=== PATIENT | male | born 1940 | race Caucasian/White ===

== ENCOUNTER 2016-11-15 20:47 | Inpatient (IN) ==
--- NOTE | 2016-11-15 21:34 | Emergency Department Note ---
Arrival - Arrival Chief Complaint: Weakness Stated Complaint: weakness ED Nursing Triage Note: pt c/o weakness and "a blood clot in one leg". EMS states home health sees patient and c/o "elevated creatnine". Mode of Arrival: Stretcher Limitations: Altered Mental Status Source: Family Time Seen by Provider: 11/15/16 21:30 - History of Present Illness HPI Narrative: The family complains of confusion and "acting weird" off and on for the past 2 weeks. The patient was recently in the hospital in [place] and had stents placed in the right leg. He apparently needed them in the left leg to but was having some elevated potassium and other abnormalities that prevented them from doing the procedure. He was discharged home. [facility] is been seeing him and nghia blood earlier today. The family was called back and told to tavarez him to the emergency room because it was abnormal. The patient has no complaints here except for chronic hip pain but he is somewhat lethargic and does not contribute much to the history. The family states he did have some vomiting this morning. Allergies/Adverse Reactions: Allergies Allergy/AdvReac Type Severity Reaction Status Date / Time No Known Allergies Allergy Verified 10/24/14 12:10 Home Medications: Home Medications Medication Instructions Recorded Confirmed Type Baclofen Tab [Lioresal] 10 mg PO DAILY 10/24/14 07/08/16 History Furosemide Tab [Lasix Tab] 40 mg PO BID 10/24/14 07/08/16 History HYDROcodone/ACETAMIN 10-325 [[place] 1 tablet PO QID PRN 10/24/14 07/08/16 History 10-325] Pantoprazole Tab [Protonix Tab] 40 mg PO DAILY 10/24/14 07/08/16 History Potassium Chloride Tab [K Dur] 20 meq PO BID 10/24/14 07/08/16 History Levothyroxine Tab [Synthroid Tab] 112 mcg PO DAILY 04/17/16 07/08/16 History Magnesium Oxide [Magox 400] 2,000 mg PO TID 04/17/16 07/08/16 History Pregabalin [Lyrica] 75 mg PO BID 04/17/16 07/08/16 History Umeclidinium Brm/Vilanterol Tr 1 puff INH DAILY 04/17/16 07/08/16 History [Anoro Ellipta] fentaNYL 100 MCG/HR PATCH 1 patch TRANSDERM Q3DAY #5 patch 05/06/16 07/08/16 Rx [Duragesic 100 Patch] Albuterol Sulfate [Ventolin HFA] 2 puff INH Q4H PRN 07/08/16 07/08/16 History Cholestyramine (with Sugar) 4 gm PO BID 07/08/16 07/08/16 History [Cholestyramine Packet] Clindamycin HCl [Clindamycin Cap] 300 mg PO QID 07/08/16 07/08/16 History Diphenoxylate/Atrop 2.5-0.025 2 each PO Q6H PRN 07/08/16 07/08/16 History [Lomotil Tab] Ipratropium/Albuterol Sulfate 3 ml IH TID 07/08/16 07/08/16 History [Iprat-Albut 0.5-3(2.5) mg/3 ml] Temazepam 30 mg PO BEDTIME PRN 07/08/16 07/08/16 History metOLazone [Metolazone] 5 mg PO BID 07/08/16 07/08/16 History Review of System - Review of System ROS unobtainable: due to mental status - Review of System Constitutional: Absent: fever Respiratory: Absent: cough, respiratory distress Cardiovascular: Absent: chest pain Gastrointestinal: Present: nausea, vomiting. Absent: abdominal pain Medical,Surgical,& Family Hx - Medical History Cardio: History of: CHF, CAD (50% LAD lesion) No history of: Hypertension Neurology: History of: Cerebrovascular Accident (had 10 years) No history of: Seizures HEENT: History of: Eye Problem (Glasses) Endocrine: History of: Thyroid Disorder Respiratory: History of: COPD Genitourinary: History of: Prostate Problems (prostate cancer) Gastrointestinal: History of: GERD, GI Problems (Chronic diarrhea about 8 years) No history of: Clostridium Difficile Musculoskeletal: History of: Back/Neck Problems (Back pain, chronic. Treated at pain clinic. Neck injury 3 crushed vertebrae), Musculoskeletal Problems Hematology: No history of: Blood Transfusion Reaction Other: History of: Cancer (Prostate) No history of: Anesthesia Reactions - Surgical History Cardiac Surgeries: Patient Denies: Cardiac Catheterization Thoracic Surgeries: Patient denies;: Organ Transplant Neurologic Surgeries: Patient denies: Neurologic Surgery Abdominal Surgeries: Surgical HX of: Abdominal Surgery, Cholecystectomy Reproductive Surgeries: Surgical HX of;: Cystoscopy Orthopedic Surgeries: Surgical HX of;: Orthopedic Surgery (wrist surgery, hip surgery, neck sugery and back surgery) - Family History Family History: Reports;: Family Cancer (Skin (Uncle)), Family Diabetes (Mother) , Family Heart Disease (Uncle, Grandfather:Father (OR)), Family Hypertension ( Mother) - Social History Smoking Status: Current every day smoker Frequency of Alcohol Use: Frequently Type of Drug Use: None Exam Physical Examination: GENERAL: Sleeping. Easily aroused. No acute distress. HEENT: Normocephalic and atraumatic. There is no nasal drainage. No pharyngeal erythema or exudate. Mucous membranes are dry. There is an indurated nodule (node versus submandibular gland) that is mildly tender with an area of ecchymosis around it. NECK: Normal inspection. Supple. No lymphadenopathy or meningismus. LUNGS: No respiratory distress. Clear to auscultation bilaterally, no wheezes, rales or rhonchi. HEART: Regular rate and rhythm. ABDOMEN: Soft, nontender and nondistended with normoactive bowel sounds. There is extensive ecchymosis of the abdomen, presumably due to Lovenox injections. BACK: Normal inspection. SKIN: Color normal. Warm and dry. EXTREMITIES: There is extensive redness, brawny edema and pitting edema to both lower extremities. Capillary refill is normal. DP pulses not palpable due to edema. There is scaling in the appearance of vascular insufficiency. NEUROLOGICAL/PSYCHIATRIC: Alert and oriented 3. Lethargic and not very cooperative but arousable. Not very cooperative with neuro exam.. Vital Signs: Vital Signs Temperature 96.8 F L 11/15/16 21:03 Pulse Rate 63 11/15/16 23:18 Respiratory Rate 18 11/15/16 23:18 Blood Pressure 118/79 11/15/16 23:18 O2 Sat by Pulse Oximetry 91 L 11/15/16 23:18 Course - Reevaluation(s) Reevaluation #1: It is not clear exactly what labs the home health agency was concerned with. His creatinine is elevated at 2.3 but has been at that level in the past. It was 1.6 at his last discharge. At any rate he is having some mental status changes and does appear ill. I have discussed the patient with Dr. Fregoso who will see him in the ER and admit. Time: 00:35 Results - Labs CBC & BMP: 11/15/16 21:13 11/15/16 21:13 Lab Results: I have reviewed the patients labs Labs: Laboratory Tests 11/15/16 11/15/16 11/15/16 21:13 21:13 21:13 INR 2.3 BUN 44 H Creatinine 2.30 H Magnesium Total Bilirubin 1.10 H AST 24 ALT 17 Troponin I B-Natriuretic Peptide 74 11/15/16 21:13 INR BUN Creatinine Magnesium 4.0 H Total Bilirubin AST ALT Troponin I < 0.015 B-Natriuretic Peptide - Impressions CT of the head showed no acute intracranial abnormality. Chest x-ray shows cardiomegaly but no acute abnormality. EKG shows a sinus rhythm at 65 with sinus arrhythmia and low QRS voltage Disposition Clinical Impression: Anemia, Mental status change, Lower extremity edema, Hypothyroid Case discussed with: patient, patient's family Disposition: Still a Patient Condition: Guarded Time of Disposition: 00:34
[2016-11-15 21:40] LABS: Basophils # 0.1 10*3/uL (0.0-0.2); Basophils % 0.5 % (0.0-0.8); Eosinophils # 0.6 10*3/uL (0.0-0.87); Eosinophils % 5.4 % (0.00-10.9); Hematocrit 28.6 VOL% (42.0-52.0); Hemoglobin 9.2 GM/DL (14.0-18.0); Immature Granulocytes % 0.5 %; Immature Granulocytes Absolute 0.06 #; Lymphocytes # 1.1 10*3/uL (1.4-4.0); Lymphocytes % 9.9 % (21.2-54.2); Mean Corpuscular HGB Conc 32.2 GM/DL (32-36); Mean Corpuscular Hemoglobin 30 PG (27-34); Mean Corpuscular Volume 94.1 FL (87-102); Mean Platelet Volume 9.3 FL (9.6-12.0); Monocytes # 0.6 10*3/uL (0.11-0.8); Monocytes % 5.1 % (1.7-12.7); Neutrophils # 8.6 10*3/uL (1.4-7.4); Neutrophils % 78.6 % (38.7-73.9); Platelet Count 283 T/CUMM (130-400); Red Blood Count 3.04 MC/CUMM (3.8-5.5)
[2016-11-15 21:47] LABS: INR 2.3
[2016-11-15 22:03] LABS: PT Patient Result 25.3 SECS; Partial Thromboplastin Time 41.8 SECS (0-40)
[2016-11-15 22:04] LABS: Albumin 2.6 G/DL (3.4-5.0); Bilirubin,Total 1.1 MG/DL (0.2-1.0); Calcium 7.9 MG/DL (8.5-10.1); Osmolality,Calculated 279.1 MOS/KG (273-304); Potassium 3.7 MMOL/L (3.5-5.1); Total Protein 7.3 G/DL (6.4-8.3)
[2016-11-15 22:21] LABS: CKMB % 3.6 %; Troponin I Only < 0.015 NG/ML (0.00-0.045)
[2016-11-16 01:50] LABS: Free T4 (Free Thyroxine) 0.94 NG/DL (0.76-1.46); Thyroid Stimulating Hormone 26.7 uIU/ml (0.358-3.74)
[2016-11-16] MEDS ORDERED: GLUCAGON 1 MG VIAL IM PRN (03:03)
[2016-11-16] MEDS ORDERED: DEXTROSE 50% 25 GM/50 ML VIAL IV PRN (03:03)
[2016-11-16] MEDS ORDERED: ONDANSETRON 4 MG/2 ML VIAL IV PRN (03:03)
[2016-11-16] MEDS ORDERED: ACETAMINOPHEN 325 MG TABLET PO PRN (03:03)
[2016-11-16] MEDS: DEXTROSE 5% NACL 0.45% 1,000 ML IV SCH ×4 (03:38→20:26)
[2016-11-16] MEDS: PIPERACILLIN/TAZOBACTAM 3,375 MG in SODIUM CHLORIDE 0.9% 100 ML IV SCH ×3 (03:51→20:27)
[2016-11-16] MEDS ORDERED: VANCOMYCIN INJ 1,500 MG in SODIUM CHLORIDE 0.9% 500 ML IV ONE (04:00)
--- NOTE | 2016-11-16 04:23 | Hospitalist History & Physical ---
Assessment and Plan (1) Cellulitis Status: Acute Assessment and plan: Both lower extremities seem to have acute inflammation, coupling with his altered mental status I am concerned for infection Vancomycin and Zosyn to cover for typical polymicrobial infection including MRSA and Pseudomonas potentially Pharmacy consult Check ESR and CRP to evaluate for potential osteomyelitis Recently had a peripheral vascular stent placed on the right presumably to improve blood flow to the wounds Hemodynamically stable Current Visit: Yes Qualifiers: Site of cellulitis: extremity Site of cellulitis of extremity: lower extremity Laterality: unspecified laterality Qualified Code(s): L03.119 - Cellulitis of unspecified part of limb (2) Acute kidney injury Status: Acute Assessment and plan: Renal function appears worse than baseline, likely secondary to infection, appears dehydrated, IV fluids and hold diuretic Current Visit: Yes (3) Hypothyroidism Status: Acute Assessment and plan: Patient has levothyroxine 112 g listed at home, TSH is not at goal Current Visit: Yes (4) COPD (chronic obstructive pulmonary disease) Status: Chronic Assessment and plan: Takes the Anoro at home, currently not an exacerbation Continue with Etta Chou's Current Visit: Yes (5) Mental status change Status: Acute Assessment and plan: Mostly seems somnolent and sick but is oriented Hold potential offending medications including opiates, removed fentanyl patch Treat 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 Lu is a 76 year old male with past medical history that includes Jose's disease, COPD, stroke, coronary artery disease, prostate cancer, hypothyroidism and peripheral vascular disease the presented with a chief complaint by family of altered mental status. There is no family available at the time of my exam but apparently this is been going on for a few days. I can appreciate that he is a bit somnolent but he is completely oriented and able to provide his own history although he repeatedly falls to sleep. He recently had a stent placed in the right femoral artery and [place] and has had home health following since that time. Home health apparently nghia labs and due to some unknown abnormality called and told the family to proceed directly to the emergency department. 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 In speaking with the patient his chief complaint is pain in bilateral feet. Onset gradual. Duration 2 weeks. No aggravating or relieving factors. No associated fever or chills. He denied currently being on antibiotics although the wounds are draining foul-smelling fluid. He had no other particular complaints and wished to go home. I have reviewed the workup performed in the emergency department including lab and imaging data. I have discussed his case with the emergency department providers. Home Medications Medication Instructions Recorded Confirmed Type Baclofen Tab [Lioresal] 10 mg PO DAILY 10/24/14 11/16/16 History Furosemide Tab [Lasix Tab] 80 mg PO BID 10/24/14 11/16/16 History HYDROcodone/ACETAMIN 10-325 [[place] 1 tablet PO QID PRN 10/24/14 11/16/16 History 10-325] Pantoprazole Tab [Protonix Tab] 40 mg PO DAILY 10/24/14 11/16/16 History Potassium Chloride Tab [K Dur] 20 meq PO BID 10/24/14 11/16/16 History Levothyroxine Tab [Synthroid Tab] 112 mcg PO DAILY 04/17/16 11/16/16 History Magnesium Oxide [Magox 400] 2,000 mg PO TID 04/17/16 11/16/16 History Pregabalin [Lyrica] 75 mg PO BID 04/17/16 11/16/16 History Umeclidinium Brm/Vilanterol Tr 1 puff INH DAILY 04/17/16 11/16/16 History [Anoro Ellipta] fentaNYL 100 MCG/HR PATCH 1 patch TRANSDERM Q3DAY #5 patch 05/06/16 11/16/16 Rx [Duragesic 100 Patch] Albuterol Sulfate [Ventolin HFA] 2 puff INH Q4H PRN 07/08/16 11/16/16 History Clindamycin HCl [Clindamycin Cap] 300 mg PO QID 07/08/16 11/16/16 History Diphenoxylate/Atrop 2.5-0.025 2 each PO Q6H PRN 07/08/16 11/16/16 History [Lomotil Tab] Temazepam 30 mg PO BEDTIME PRN 07/08/16 11/16/16 History metOLazone [Metolazone] 5 mg PO BID 07/08/16 11/16/16 History Allergies Allergy/AdvReac Type Severity Reaction Status Date / Time No Known Allergies Allergy Verified 10/24/14 12:10 Medical,Surgical,& Family Hx - Medical History Cardio: History of: CHF, CAD (50% LAD lesion) No history of: Hypertension Neurology: History of: Cerebrovascular Accident (had 10 years) No history of: Seizures HEENT: History of: Eye Problem (Glasses) Endocrine: History of: Thyroid Disorder Respiratory: History of: COPD Genitourinary: History of: Prostate Problems (prostate cancer) Gastrointestinal: History of: GERD, GI Problems (Chronic diarrhea about 8 years) No history of: Clostridium Difficile Musculoskeletal: History of: Back/Neck Problems (Back pain, chronic. Treated at pain clinic. Neck injury 3 crushed vertebrae), Musculoskeletal Problems Hematology: No history of: Blood Transfusion Reaction Other: History of: Cancer (Prostate) No history of: Anesthesia Reactions - Surgical History Cardiac Surgeries: Patient Denies: Cardiac Catheterization Thoracic Surgeries: Patient denies;: Organ Transplant Neurologic Surgeries: Patient denies: Neurologic Surgery Abdominal Surgeries: Surgical HX of: Abdominal Surgery, Cholecystectomy Reproductive Surgeries: Surgical HX of;: Cystoscopy Orthopedic Surgeries: Surgical HX of;: Orthopedic Surgery (wrist surgery, hip surgery, neck sugery and back surgery) - Family History Family History: Reports;: Family Cancer (Skin (Uncle)), Family Diabetes (Mother) , Family Heart Disease (Uncle, Grandfather:Father ([place])), Family Hypertension ( Mother) - Social History Smoking Status: Former smoker (But smoking 20 years ago) Have you smoked in the last 12 months: No Frequency of Alcohol Use: Frequently Type of Drug Use: None Marital Status: Lives With:: Spouse Functional capacity: wheelchair bound Review of systems: - Constitutional Constitutional: Absent: chills, fatigue, fever(s), night sweats, weight loss - EENT Eyes: Absent: blurry vision Ears: Absent: decreased hearing, ear pain Nose, mouth and throat: Absent: nasal congestion, sore throat - Cardiovascular Cardiovascular: Absent: chest pain at rest, chest pain with activity, dyspnea on exertion, edema, orthopnea, palpitations - Respiratory Respiratory: Absent: cough, dyspnea, hemoptysis - Gastrointestinal Gastrointestinal: Absent: abdominal pain, constipation, diarrhea, dysphagia, hematemesis, hematochezia, melena, nausea, vomiting - Genitourinary Genitourinary: Absent: difficulty urinating, dysuria, hematuria - Musculoskeletal Musculoskeletal: Present: Pain in bilateral feet - Neurological Neurological: Absent: confusion, dizziness, focal weakness, headache(s), numbness, paresthesias, syncope - Psychiatric Psychiatric: Absent: anxiety, depression - Endocrine Endocrine: Absent: cold intolerance, heat intolerance, polydipsia, polyuria - Hematologic/Lymphatic Hematologic/Lymphatic: Absent: easy bleeding, easy bruising, lymphadenopathy Exam - Constitutional Vitals: Period Temp Pulse Resp BP Sys/Jones Pulse Ox Last 24 Hr 97.4 F 68 18 108/66 93 General appearance: morbidly obese (Elderly white male sleepy lying in stretcher easily awoken and pleasant and cooperative) Exam: - Eye Eye exam: Present: EOMI. Absent: conjunctival injection, scleral icterus Pupils: Present: MIKAL - ENT ENT exam: Present: normal external ear exam, normal oropharynx - Expanded ENT Exam Mouth exam: Present: Dry - Neck Neck exam: Present: normal inspection. Absent: lymphadenopathy, thyromegaly - Respiratory Respiratory exam: Present: Coarse breath sounds bilaterally. Absent: accessory muscle use, wheezes - Cardiovascular Cardiovascular exam: Present: regular rate and rhythm. Absent: diastolic murmur , systolic murmur - GI/Abdominal GI/Abdominal exam: Present: normal bowel sounds, soft, bruising on abdomen. Absent: distended, hyperactive bowel sounds, hypoactive bowel sounds, organomegaly, tenderness, rebound - Extremities Exam Extremities exam: Present: Marked bilateral lower extremity edema, with redness , weeping foul-smelling fluid, hyperemic - Neurological Exam Neurological exam: Present: alert, oriented X3, CN II-XII intact. Absent: motor sensory deficit - Psychiatric Psychiatric exam: Present: Sleepy, ill appearing affect - Skin Skin exam: Present: warm, dry. Absent: diaphoretic, rash Results - Labs CBC & BMP: 11/15/16 21:13 11/15/16 21:13 - EKG EKG results: sinus rhythm - Diagnostic Findings Procedure: Chest x-ray: report reviewed by me, CT: report reviewed by me Quality Measures - VTE Contraindication to Mechanical VTE Prophylaxis: Local Inflammation
--- NOTE | 2016-11-16 06:34 | CT Report ---
Referring physician: Stephon Harp Exam: CT brain without contrast Date: November 15, 2016 Comparison: CT brain without contrast October 22, 2014 Reason: Mental status change/memory loss The patient was an Emergency Department patient on November 15, 2016. Preliminary report was provided by [facility]. Technique: Axial images of the head were obtained without the use of contrast. Total DLP was 1081.1 mGy*cm. Findings: There is [id number] generalized cerebral and cerebellar atrophy/volume loss and probable mild chronic microvascular ischemic change. The lateral ventricles are mildly prominent but stable, likely secondary to central atrophy/volume loss. No midline shift is present. There is no evidence of recent intracranial hemorrhage, abnormal mass effect or an acute infarction. No acute osseous process is seen, but there may be a remote fracture of the medial wall of the left orbit. Prominent calcified plaque is noted at the intracranial internal carotid arteries. The mastoid air cells and visualized paranasal sinuses are clear. Impression: 1. No acute intracranial process is identified. 2. Chronic intracranial findings, similar to before. The CT exam was performed using one or more of the following dose reduction techniques: Automated exposure control and adjustment of the mA and/or kV according to patient size. PROCEDURE INTERPRETED AT [facility] DEPARTMENT OF RADIOLOGY Final Report Signed by: Dr. Park Ortiz
[2016-11-16] MEDS: INSULIN LISPRO 100 UNIT/ML SUBCUT SCH ×4 (08:00→20:27)
--- NOTE | 2016-11-16 08:22 | XRay Report ---
Referring Physician: Stephon Harp Exam: XR chest 1V portable Date: November 15, 2016 at 9:45 PM Reason: Dyspnea/shortness of breath Comparison: Chest one view portable July 08, 2016 Findings: The cardiac silhouette is again enlarged, and there is prominent scattered calcified plaque at the thoracic aorta. There are minimal opacities within the left midlung zone, which likely represent atelectasis or scarring. No pneumothorax or definite pleural fluid is identified. No acute osseous process is seen. There is again surgical fusion of the cervical spine. Impression: 1. Cardiomegaly. 2. Minimal atelectasis or scarring within the left midlung zone. PROCEDURE INTERPRETED AT [facility] DEPARTMENT OF RADIOLOGY Final Report Signed by: Dr. Park Ortiz
[2016-11-16] MEDS: LEVOTHYROXINE 112 MCG TABLET PO SCH (09:21)
[2016-11-16] MEDS: PANTOPRAZOLE 40 MG TABLET PO SCH (09:21)
--- NOTE | 2016-11-16 15:11 | EKG Report ---
Stationary ECG Study [facility] Test Date: 11/15/2016 9:21:03 PM Pat Name: DREW ANSARI Department: Room: 521 Gender: M Basketball Referee: : 1940 Requested by: Stephon Casillas Order Number: [id number] Reading MD: MAYDA PINA Intervals [place] Rate: 65 P: 50 OH: 215 QRS: -18 QRSD: 91 T: 20 QT: 423 QTc: 435 Interpretive Statements SINUS RHYTHM WITH SINUS ARRHYTHMIA WITH PROLONGED OH INTERVAL Electronically Signed On 11-18-16 12:16:40 CDT by MAYDA PINA [email or web address]
[2016-11-16] MEDS ORDERED: SKIN HEALING OINT (AQUAPHOR) 50 GM TUBE TOP PRN (15:17)
--- NOTE | 2016-11-16 16:16 | XRay Report ---
Referring Physician: Gopal Still MD Exam: XR bilateral foot 2 views Date: November 16, 2016 at 3:04 PM Reason: Wounds at feet, evaluate for osteomyelitis Comparison: None Findings: Left foot: There are hammertoe deformities at the left foot and diffuse demineralization/osteoporosis. This makes evaluation for a subtle osseous lesion difficult, but no acute fracture or osseous destructive process is identified. There may be a remote fracture of the left fifth metatarsal. Scattered degenerative change is seen at the left foot with mild marginal spurring and mild joint space narrowing. There is a diffuse soft tissue swelling at the left foot. Right foot: There has been internal fixation of the distal right tibia, and a 1.7 cm curvilinear metallic density is seen within the soft tissues of the plantar aspect of the right foot. This is concerning for a soft tissue foreign body. Hammertoe deformities are present at the right foot, and there is diffuse demineralization/osteoporosis. Scattered degenerative change is seen at the right foot with mild joint space narrowing and marginal spurring. Evaluation for a subtle process is difficult, but no acute fracture or osseous destructive process is identified. Diffuse soft tissue swelling is present. Impression: 1. Diffuse soft tissue swelling is seen at both feet but no acute osseous process is identified. Specifically, there is no convincing evidence of osteomyelitis. However, evaluation is limited by diffuse demineralization/osteoporosis and hammertoe deformities at the digits bilaterally. 2. There has been internal fixation of the distal right tibia, and a 1.7 cm curvilinear metallic soft tissue foreign body is seen at the plantar aspect of the right foot. PROCEDURE INTERPRETED AT [facility] DEPARTMENT OF RADIOLOGY Final Report Signed by: Dr. Park Ortiz
[2016-11-16] MEDS: WARFARIN 5 MG TABLET PO SCH (17:05)
[2016-11-16] MEDS: CLOPIDOGREL 75 MG TABLET PO SCH (17:05)
[2016-11-16] MEDS: CHLORHEXIDINE 4% SOLN 118 ML BOTTLE TOP SCH (17:05)
[2016-11-16] MEDS: DESITIN 4OZ/NYSTATIN 15 GRAM MIXTURE PASTE TOP SCH ×2 (17:43→21:03)
[2016-11-16] MEDS: ALBUTEROL/IPRATROPIUM 3 ML NEB RESP TX PRN (18:39)
[2016-11-17] MEDS: DEXTROSE 5% NACL 0.45% 1,000 ML IV SCH (02:03)
[2016-11-17] MEDS: PIPERACILLIN/TAZOBACTAM 3,375 MG in SODIUM CHLORIDE 0.9% 100 ML IV SCH ×3 (03:06→22:49)
[2016-11-17 06:59] LABS: INR 2.4
[2016-11-17 07:04] LABS: PT Patient Result 26.8 SECS
[2016-11-17 07:07] LABS: Basophils % 0.3 % (0.0-0.8); Eosinophils # 0.5 10*3/uL (0.0-0.87); Eosinophils % 5.6 % (0.00-10.9); Hematocrit 24.3 VOL% (42.0-52.0); Immature Granulocytes % 0.5 %; Immature Granulocytes Absolute 0.04 #; Lymphocytes # 0.8 10*3/uL (1.4-4.0); Lymphocytes % 9.2 % (21.2-54.2); Mean Corpuscular HGB Conc 32.1 GM/DL (32-36); Mean Corpuscular Hemoglobin 30 PG (27-34); Mean Corpuscular Volume 93.1 FL (87-102); Mean Platelet Volume 10.3 FL (9.6-12.0); Monocytes # 0.7 10*3/uL (0.11-0.8); Monocytes % 7.8 % (1.7-12.7); Neutrophils # 6.6 10*3/uL (1.4-7.4); Neutrophils % 76.6 % (38.7-73.9); Platelet Count 201 T/CUMM (130-400); Red Blood Count 2.61 MC/CUMM (3.8-5.5); Red Cell Distribution Width 16.7 % (9.3-17.3); White Blood Count 8.6 T/CUMM (4-12)
[2016-11-17 07:09] LABS: Hemoglobin 7.8 GM/DL (14.0-18.0)
[2016-11-17 07:29] LABS: Albumin 1.8 G/DL (3.4-5.0); Osmolality,Calculated 289.3 MOS/KG (273-304); Potassium 3.6 MMOL/L (3.5-5.1)
[2016-11-17] MEDS: INSULIN LISPRO 100 UNIT/ML SUBCUT SCH ×4 (08:15→22:50)
[2016-11-17] MEDS: VANCOMYCIN INJ 1,500 MG in SODIUM CHLORIDE 0.9% 500 ML IV SCH (08:18)
[2016-11-17] MEDS: PANTOPRAZOLE 40 MG TABLET PO SCH (08:29)
[2016-11-17] MEDS: CLOPIDOGREL 75 MG TABLET PO SCH (08:29)
[2016-11-17] MEDS: DESITIN 4OZ/NYSTATIN 15 GRAM MIXTURE PASTE TOP SCH ×2 (08:29→22:50)
[2016-11-17] MEDS: LEVOTHYROXINE 112 MCG TABLET PO SCH (08:29)
--- NOTE | 2016-11-17 10:01 | Hospitalist Progress Note ---
Assessment and Plan (1) Mental status change Status: Acute Assessment and plan: Improved Current Visit: Yes (2) Cellulitis Status: Acute Assessment and plan: Continue vancomycin and zosyn Current Visit: Yes Qualifiers: Site of cellulitis: extremity Site of cellulitis of extremity: lower extremity Laterality: unspecified laterality Qualified Code(s): L03.119 - Cellulitis of unspecified part of limb (3) Acute kidney injury Status: Acute Assessment and plan: Slightly better today Continue IV fluids, decrease today Current Visit: Yes (4) Hypothyroidism Status: Acute Current Visit: Yes (5) COPD (chronic obstructive pulmonary disease) Status: Chronic Current Visit: Yes Hospitalist: Subjective Interval history: No acute events overnight. Patient more awake today, seen sitting up eating breakfast. Surgery has been consulted for his leg wounds. Continue vancomycin and zosyn. Exam - Constitutional Vitals: Period Temp Pulse Resp BP Sys/Jones Pulse Ox Last 24 Hr 97.7 F-98.7 F 59-73 18-20 95-131/41-74 91-99 General appearance: over weight - Head Head exam: Present: normocephalic, atraumatic - Eye Eye exam: Present: EOMI Pupils: Present: MIKAL - ENT ENT exam: Present: normal exam - Neck Neck exam: Present: normal inspection - Respiratory Respiratory exam: Present: clear to auscultation bilaterally. Absent: rhonchi, wheezes - Cardiovascular Cardiovascular exam: Present: regular rate and rhythm - GI/Abdominal GI/Abdominal exam: Present: normal bowel sounds, soft. Absent: tenderness, rebound - Extremities Exam Extremities exam: Present: normal inspection - Back Exam Back exam: Present: normal inspection - Neurological Exam Neurological exam: Present: alert - Psychiatric Psychiatric exam: Present: normal affect, normal mood - Skin Skin exam: Present: warm, intact Results - Labs CBC & BMP: 11/17/16 05:33 11/17/16 05:33 Quality Measures - VTE Contraindication to Mechanical VTE Prophylaxis: Local Inflammation
--- NOTE | 2016-11-17 11:24 | General Surgery Consult Note ---
Assessment and Plan - Time spent with patient Time spent with patient: Less than 30 minutes (1) Chronic foot ulcer Status: Chronic Assessment and plan: Impression: 1. Ulcerations of the left second toe and posterior calf areas 2. Chronic venous stasis disease with scaling probably from blistering of the lower extremities. 3. Possible history of peripheral arterial disease with stenting of the right arterial system. 4. Recent history of deep vein thrombosis of left lower extremity 5. History of multiple traumas to the lower extremities left greater than right. 6. Prostate cancer status post radiation therapy 7. General paraplegia etiology of which is unclear at this time. Plan: Will start in maintains good wound care with compressive therapy to the lower extremities. Try to obtain some information and possible arteriograms from [facility] to see if we can understand what his circulatory status might be. Would be a little bit concerned fact that patient has to be on both Coumadin and Plavix at this time. Not sure if there is a better alternative to this process. Current Visit: No Qualifiers: Laterality: left Non-pressure ulcer stage: limited to breakdown of skin Qualified Code(s): L97.521 - Non-pressure chronic ulcer of other part of left foot limited to breakdown of skin History of Present Illness Chief complaint: Multiple ulcerations with swelling and blistering of both lower extremities History of present illness: Mr. Lu is a 76 year old male white who has become pretty much bedridden the etiology of which is not clear at this time. we will consulted to see him because of these legs with swelling and ulcerations present at this time. Worse is on the left side at this point with ulcerations on posterior calf and on the toes. Mostly what sewn the rest of the legs is some erythematous changes on the lower portion leg as well as scaling throughout several parts of the leg and ankle and foot. There is a history of these probably had a good bit of swelling and probably has good bit of weeping associated with that because he would sit up. Patient has become bedridden but I am not quite sure why that has occurred. He has had prostate cancer and underwent radiation therapy and has some diarrhea in relation to that at this point time. There is a history that he has had multiple traumas to the lower extremities including fractures of the left hip and of the right thigh areas. There is evidence on his x-rays of his feet that there may be a right tibial fracture to area with some material in place. Patient has recently been done in [place] under the care of another physician for his lower extremities. It is reported by the family that he had stents placed in the right lower extremity but has not clears with this was venous or arterial at this point. He still has no ulcerations on that right foot and there is good palpable pulse in the foot at this point. He is now on Plavix for the stents but is also been put on Coumadin because then has buried they noted that he had a clot in the veins of the left leg. We do not know the extent of this are whether this would be considered chronic or acute at this time. At this point he is on both Plavix and the Coumadin. It appears that the patient has some problems with venous stasis disease and chronic swelling with blistering and weeping. He also has some ulcerations it may be pressure related at this time but will need to go ahead and get some care started try to improve status of these wounds. Home Medications Medication Instructions Recorded Confirmed Type Baclofen Tab [Lioresal] 10 mg PO DAILY 10/24/14 11/16/16 History Furosemide Tab [Lasix Tab] 80 mg PO BID 10/24/14 11/16/16 History Pantoprazole Tab [Protonix Tab] 40 mg PO DAILY 10/24/14 11/16/16 History Potassium Chloride Tab [K Dur] 20 meq PO BID 10/24/14 11/16/16 History Levothyroxine Tab [Synthroid Tab] 112 mcg PO DAILY 04/17/16 11/16/16 History Magnesium Oxide [Magox 400] 2,000 mg PO TID 04/17/16 11/16/16 History Pregabalin [Lyrica] 75 mg PO BID 04/17/16 11/16/16 History Umeclidinium Brm/Vilanterol Tr 1 puff INH DAILY 04/17/16 11/16/16 History [Anoro Ellipta] fentaNYL 100 MCG/HR PATCH 1 patch TRANSDERM Q3DAY #5 patch 05/06/16 11/16/16 Rx [Duragesic 100 Patch] Albuterol Sulfate [Ventolin HFA] 2 puff INH Q4H PRN 07/08/16 11/16/16 History Clindamycin HCl [Clindamycin Cap] 300 mg PO QID 07/08/16 11/16/16 History Diphenoxylate/Atrop 2.5-0.025 2 each PO Q6H PRN 07/08/16 11/16/16 History [Lomotil Tab] Temazepam 30 mg PO BEDTIME PRN 07/08/16 11/16/16 History metOLazone [Metolazone] 5 mg PO BID 07/08/16 11/16/16 History Clopidogrel [Plavix] 75 mg PO DAILY 11/16/16 11/16/16 History Warfarin Sodium [Jantoven] 5 mg PO DAILY 11/16/16 11/16/16 History Allergies Allergy/AdvReac Type Severity Reaction Status Date / Time No Known Allergies Allergy Verified 10/24/14 12:10 Medical,Surgical,& Family Hx - Medical History Cardio: History of: CHF, CAD (50% LAD lesion) No history of: Hypertension Neurology: History of: Cerebrovascular Accident (had 10 years) No history of: Seizures HEENT: History of: Eye Problem (Glasses) Endocrine: History of: Thyroid Disorder Respiratory: History of: COPD Genitourinary: History of: Prostate Problems (prostate cancer) Gastrointestinal: History of: GERD, GI Problems (Chronic diarrhea about 8 years) No history of: Clostridium Difficile Musculoskeletal: History of: Back/Neck Problems (Back pain, chronic. Treated at pain clinic. Neck injury 3 crushed vertebrae), Musculoskeletal Problems Hematology: No history of: Blood Transfusion Reaction Other: History of: Cancer (Prostate) No history of: Anesthesia Reactions - Surgical History Cardiac Surgeries: Patient Denies: Cardiac Catheterization Thoracic Surgeries: Patient denies;: Organ Transplant Neurologic Surgeries: Patient denies: Neurologic Surgery Abdominal Surgeries: Surgical HX of: Abdominal Surgery, Cholecystectomy Reproductive Surgeries: Surgical HX of;: Cystoscopy Orthopedic Surgeries: Surgical HX of;: Orthopedic Surgery (wrist surgery, hip surgery, neck sugery and back surgery) - Family History Family History: Reports;: Family Cancer (Skin (Uncle)), Family Diabetes (Mother) , Family Heart Disease (Uncle, Grandfather:Father ([place])), Family Hypertension ( Mother) - Social History Smoking Status: Former smoker (But smoking 20 years ago) Frequency of Alcohol Use: Frequently Type of Drug Use: None 12 point system: reviewed and no additional remarkable complaints except as stated Exam - Constitutional Vitals: Period Temp Pulse Resp BP Sys/Jones Pulse Ox Last 24 Hr 97.7 F-98.7 F 59-73 18-20 95-131/41-74 91-99 General appearance: mild distress - Head Head exam: Present: normal inspection - ENT ENT exam: Present: normal exam - Neck Neck exam: Present: normal inspection - Respiratory Respiratory exam: Present: rales, rhonchi - Cardiovascular Cardiovascular exam: Present: RRR - GI/Abdominal GI/Abdominal exam: Present: hypoactive bowel sounds, soft. Absent: distended, tenderness - Extremities Exam Extremities exam: Present: other (Right lower extremity has a little redness from the knee down with some straightening of the legs part related to the loss of the edema in that lower extremity. There is a scaling onto the leg heel and toe areas probably related to chronic swelling and weeping fluid but no clear ulcerations are seen. Left lower extremity similarly has some improvement of the swelling in that lower extremity with a little erythematous changes from the knee down probably related to stasis dermatitis. There is a good bit of scaling throughout the leg but there are 2 ulcers in the posterior calf area as well as one on the second toe that is present in this side.) - Back Exam Back exam: Present: normal inspection - Neurological Exam Neurological exam: Present: alert, oriented X3, CN II-XII intact - Skin Skin exam: Present: normal color, warm, dry Quality Measures - VTE Contraindication to Mechanical VTE Prophylaxis: Local Inflammation Results - Labs CBC & BMP: 11/17/16 05:33 11/17/16 05:33 Lab Results: I have reviewed the past 24 hour labs
[2016-11-17] MEDS: ALBUTEROL/IPRATROPIUM 3 ML NEB RESP TX PRN (11:38)
[2016-11-17] MEDS: SODIUM CHLORIDE 0.9% 1,000 ML IV SCH ×2 (13:12→22:51)
[2016-11-17] MEDS: NYSTATIN POWDER 15 GM BOTTLE TOP SCH (13:17)
[2016-11-17] MEDS: COLLAGENASE OINT 30 GM TUBE TOP SCH (13:17)
[2016-11-17] MEDS: SKIN HEALING OINT (AQUAPHOR) 50 GM TUBE TOP SCH (13:17)
[2016-11-17] MEDS: CHLORHEXIDINE 4% SOLN 118 ML BOTTLE TOP SCH (13:18)
[2016-11-17] MEDS: PREGABALIN 75 MG CAPSULE PO SCH ×2 (15:12→21:49)
[2016-11-17] MEDS: fentaNYL 50 MCG/HR PATCH TRANSDERM SCH (15:12)
[2016-11-17] MEDS: WARFARIN 5 MG TABLET PO SCH (18:19)
[2016-11-18] MEDS: PIPERACILLIN/TAZOBACTAM 3,375 MG in SODIUM CHLORIDE 0.9% 100 ML IV SCH ×3 (05:09→21:19)
[2016-11-18 07:41] LABS: Basophils % 0.3 % (0.0-0.8); Eosinophils # 0.6 10*3/uL (0.0-0.87); Eosinophils % 8.7 % (0.00-10.9); Hematocrit 25.2 VOL% (42.0-52.0); Hemoglobin 8.1 GM/DL (14.0-18.0); Immature Granulocytes % 0.3 %; Immature Granulocytes Absolute 0.02 #; Lymphocytes # 0.8 10*3/uL (1.4-4.0); Lymphocytes % 11.8 % (21.2-54.2); Mean Corpuscular HGB Conc 32.1 GM/DL (32-36); Mean Corpuscular Hemoglobin 30 PG (27-34); Mean Platelet Volume 10.3 FL (9.6-12.0); Monocytes # 0.7 10*3/uL (0.11-0.8); Monocytes % 10.5 % (1.7-12.7); Neutrophils # 4.5 10*3/uL (1.4-7.4); Neutrophils % 68.4 % (38.7-73.9); Platelet Count 197 T/CUMM (130-400); Red Blood Count 2.68 MC/CUMM (3.8-5.5); Red Cell Distribution Width 16.9 % (9.3-17.3); White Blood Count 6.6 T/CUMM (4-12)
[2016-11-18 08:01] LABS: PT Patient Result 22.1 SECS; Partial Thromboplastin Time 50.2 SECS (0-40)
[2016-11-18 08:13] LABS: Calcium 7.3 MG/DL (8.5-10.1); Magnesium 3.5 MG/DL (1.8-2.4); Osmolality,Calculated 286.3 MOS/KG (273-304); Potassium 3.5 MMOL/L (3.5-5.1)
[2016-11-18] MEDS: DESITIN 4OZ/NYSTATIN 15 GRAM MIXTURE PASTE TOP SCH ×2 (09:02→21:12)
[2016-11-18] MEDS: PREGABALIN 75 MG CAPSULE PO SCH ×2 (09:02→21:12)
[2016-11-18] MEDS: NYSTATIN POWDER 15 GM BOTTLE TOP SCH (09:02)
[2016-11-18] MEDS: PANTOPRAZOLE 40 MG TABLET PO SCH (09:02)
[2016-11-18] MEDS: CLOPIDOGREL 75 MG TABLET PO SCH (09:02)
[2016-11-18] MEDS: LEVOTHYROXINE 112 MCG TABLET PO SCH (09:02)
[2016-11-18] MEDS: VANCOMYCIN INJ 1,500 MG in SODIUM CHLORIDE 0.9% 500 ML IV SCH (09:03)
[2016-11-18] MEDS: INSULIN LISPRO 100 UNIT/ML SUBCUT SCH ×4 (09:03→21:13)
[2016-11-18] MEDS: COLLAGENASE OINT 30 GM TUBE TOP SCH (11:01)
[2016-11-18] MEDS: CHLORHEXIDINE 4% SOLN 118 ML BOTTLE TOP SCH (11:01)
[2016-11-18] MEDS: SKIN HEALING OINT (AQUAPHOR) 50 GM TUBE TOP SCH (11:01)
--- NOTE | 2016-11-18 11:17 | General Surgery Progress Note ---
Assessment and Plan - Time spent with patient Time spent with patient: Greater than 30 minutes (1) Venous stasis ulcers of both lower extremities Status: Acute Assessment and plan: 11/18/2016 Chronic venous stasis ulcerations of both lower extremities. There does appear to be both gram positives and gram negatives growing on preliminary cultures. Patient is on vancomycin and local care. He does seem to be responding well to compression, and there is no evidence of any ischemic peripheral progression. There is still some confusion as to why he is on both Plavix and Coumadin, at this point however we will continue this therapy in order to protect his stents, while awaiting records from [facility]. Certainly there seems to be no evidence of any acute ischemic process, nor does he seem to have any evidence of any evolving thrombotic lower extremity sequela. He should respond well to consistent compression, local care plus the systemic antibiotics. Current Visit: Yes Subjective Patient reports: Present: feels better, still having pain, pain is less Exam - Constitutional Vitals: Period Temp Pulse Resp BP Sys/Jones Pulse Ox Last 24 Hr 97.4 F-98.8 F 58-83 16-21 102-128/40-74 94-99 General appearance: no acute distress - Respiratory Respiratory exam: Absent: rales, rhonchi - Extremities Exam Extremities exam: Present: other (Bilateral lower extremities with 1+ pitting edema left greater than right. Right lower extremity has only mild superficial erythema present. I see no weeping on the right, only mild superficial venous stasis ulcerations are present here primarily at the posterior aspect near the heel. On the left however there a bit deeper ulcerations that are full- thickness across the dorsum of the left foot the toes and second toe webspace in the anterior portion of the left second toe. This does appear clean at this point, and I see no purulent drainage & no ischemic change. He is quite tender , with calves are soft and there is no nodularity.) Results - Labs CBC & BMP: 11/18/16 06:52 11/18/16 06:52 Lab Results: I have reviewed the past 24 hour labs (Creatinine 2.0 hematocrit is stable at 25.2) - Diagnostic Findings Procedure: X-ray: report reviewed by me (X-ray of the left foot shows no convincing evidence of osteomyelitis.) Quality Measures - VTE Contraindication to Mechanical VTE Prophylaxis: Local Inflammation
--- NOTE | 2016-11-18 16:25 | Hospitalist Progress Note ---
Assessment and Plan (1) Mental status change Status: Acute Assessment and plan: Improved Current Visit: Yes (2) Cellulitis Status: Acute Assessment and plan: Continue vancomycin and zosyn Current Visit: Yes Qualifiers: Site of cellulitis: extremity Site of cellulitis of extremity: lower extremity Laterality: unspecified laterality Qualified Code(s): L03.119 - Cellulitis of unspecified part of limb (3) Acute kidney injury Status: Acute Assessment and plan: Slightly better today Continue IV fluids, decrease today Current Visit: Yes (4) Hypothyroidism Status: Acute Current Visit: Yes (5) COPD (chronic obstructive pulmonary disease) Status: Chronic Current Visit: Yes Hospitalist: Subjective Interval history: No acute events overnight. Patient reports that he is doing well today. There was concern for osteo in bilateral feet, ordered mri to rule out. Wound cultures growing gram negative rods and gram positive cocci. On vancomycin and zosyn. Surgery following. Exam - Constitutional Vitals: Period Temp Pulse Resp BP Sys/Jones Pulse Ox Last 24 Hr 97.4 F-97.6 F 58-70 18-21 99-128/49-74 95-99 General appearance: over weight - Head Head exam: Present: normocephalic, atraumatic - Eye Eye exam: Present: EOMI Pupils: Present: MIKAL - ENT ENT exam: Present: normal exam - Neck Neck exam: Present: normal inspection - Respiratory Respiratory exam: Present: clear to auscultation bilaterally. Absent: rhonchi, wheezes - Cardiovascular Cardiovascular exam: Present: regular rate and rhythm - GI/Abdominal GI/Abdominal exam: Present: normal bowel sounds, soft. Absent: tenderness, rebound - Extremities Exam Extremities exam: Present: normal inspection - Back Exam Back exam: Present: normal inspection - Neurological Exam Neurological exam: Present: alert - Psychiatric Psychiatric exam: Present: normal affect, normal mood - Skin Skin exam: Present: warm, intact Results - Labs CBC & BMP: 11/18/16 06:52 11/18/16 06:52 Quality Measures - VTE Contraindication to Mechanical VTE Prophylaxis: Local Inflammation
--- NOTE | 2016-11-18 16:53 | Magnetic Resonance Report ---
Referring Physician: Mara Mullins MD Exam: MRI left foot without contrast Date: November 18, 2016 Reason: Evaluate for osteomyelitis, bilateral foot wounds Comparison: Bilateral foot x-rays November 16, 2016 Technique: MRI of the left foot was performed without the use of contrast. Obtained sequences include axial T1, axial STIR, coronal T1, coronal T2, coronal STIR, sagittal T1 and sagittal STIR sequences. A 1.5 Amaris magnet was used. Findings: Motion artifact is present and degrades the quality of the study. There is degenerative change at the left foot with hammertoe deformities at the digits. This makes evaluation of the digits difficult. However, no convincing osteomyelitis is identified at the left foot. There is diffuse soft tissue edema at the left foot. This edema involves the intrinsic musculature, especially at the plantar aspect adjacent to some of the tendons. This could represent cellulitis. There is mild fluid at the sinus tarsi but no convincing evidence of sinus tarsi syndrome. Evaluation of the plantar fascia is difficult in some regions, but no obvious plantar fasciitis is seen. Evaluation of the tendons is also limited in several regions, but no obvious tendinosis is identified. Evaluation for a ligamentous injury is limited by motion artifact. Impression: There is scattered degenerative change at the left foot with hammertoe deformities at the digits. This makes evaluation for osteomyelitis difficult, but no definite osteomyelitis is seen. There is diffuse soft tissue edema at the left foot, which may reflect cellulitis. PROCEDURE INTERPRETED AT [facility] DEPARTMENT OF RADIOLOGY Final Report Signed by: Dr. Park Ortiz
[2016-11-18] MEDS: WARFARIN 5 MG TABLET PO SCH (18:13)
--- NOTE | 2016-11-18 18:46 | Magnetic Resonance Report ---
Referring Physician: Mara Mullins MD Exam: MRI right foot without contrast Date: November 18, 2016 Reason: Evaluate for osteomyelitis Comparison: Bilateral foot x-rays November 16, 2016 Technique: MRI of the right foot was performed without the use of contrast. Obtained sequences include axial T1, axial STIR, coronal T1, coronal T2 fat sat, coronal STIR, sagittal T1 and sagittal STIR sequences. A 1.5 Amaris magnet was used. Findings: A linear metallic density was seen within the soft tissues of the plantar aspect of the right foot on the recent x-ray. This produces prominent local artifact and limits evaluation of the adjacent structures, particularly the metatarsals and tarsal bones. There is scattered degenerative change at the right foot with hammertoe deformities at the digits. This makes evaluation of the digits difficult. However, there is STIR hyperintensity and mild ill-defined T1 hypointensity at the base of the proximal fifth digit. This could represent osteomyelitis or a nondisplaced fracture. There is diffuse soft tissue edema at the right foot, but no definite abscess formation. The plantar fascia and Achilles tendon are unremarkable as visualized. Evaluation of the tendons is limited by motion artifact and artifact from the metallic foreign body. However, there is tenosynovitis at the flexor digitorum longus and flexor hallucis longus tendons. No definite tendon tear is seen. The ligaments cannot be adequately evaluated. There is no convincing evidence of sinus tarsi syndrome. Impression: 1. Evaluation is limited by motion artifact and artifact from a metallic foreign body located within the soft tissues at the plantar aspect of the right foot. 2. There is STIR hyperintensity/mild T1 hypointensity within the base of the proximal fifth phalanx. This could represent osteomyelitis or a nondisplaced fracture. 3. There is diffuse soft tissue edema at the right foot, which may reflect cellulitis. No organized soft tissue fluid collection is seen to suggest a soft tissue abscess. 4. Tenosynovitis at the flexor digitorum longus and flexor hallucis longus tendons. PROCEDURE INTERPRETED AT [facility] DEPARTMENT OF RADIOLOGY Final Report Signed by: Dr. Park Ortiz
[2016-11-18] MEDS ORDERED: ANORO ELLIPTA INH SCH (21:00)
[2016-11-19] MEDS: SODIUM CHLORIDE 0.9% 1,000 ML IV SCH ×3 (02:32→22:08)
[2016-11-19] MEDS: PIPERACILLIN/TAZOBACTAM 3,375 MG in SODIUM CHLORIDE 0.9% 100 ML IV SCH ×3 (05:13→22:09)
[2016-11-19 06:20] LABS: Basophils % 0.4 % (0.0-0.8); Eosinophils # 0.7 10*3/uL (0.0-0.87); Eosinophils % 8.4 % (0.00-10.9); Hematocrit 26.5 VOL% (42.0-52.0); Immature Granulocytes % 0.4 %; Immature Granulocytes Absolute 0.03 #; Lymphocytes # 0.8 10*3/uL (1.4-4.0); Lymphocytes % 10.3 % (21.2-54.2); Mean Corpuscular HGB Conc 30.2 GM/DL (32-36); Mean Corpuscular Hemoglobin 30 PG (27-34); Mean Corpuscular Volume 99.3 FL (87-102); Mean Platelet Volume 10.2 FL (9.6-12.0); Monocytes # 0.8 10*3/uL (0.11-0.8); Monocytes % 10.2 % (1.7-12.7); Neutrophils # 5.6 10*3/uL (1.4-7.4); Neutrophils % 70.3 % (38.7-73.9); Platelet Count 197 T/CUMM (130-400); Red Blood Count 2.67 MC/CUMM (3.8-5.5)
[2016-11-19 06:43] LABS: Calcium 7.4 MG/DL (8.5-10.1); Magnesium 3.2 MG/DL (1.8-2.4); Osmolality,Calculated 286.1 MOS/KG (273-304)
[2016-11-19] MEDS: PANTOPRAZOLE 40 MG TABLET PO SCH (08:20)
[2016-11-19] MEDS: PREGABALIN 75 MG CAPSULE PO SCH ×2 (08:20→20:26)
[2016-11-19] MEDS: INSULIN LISPRO 100 UNIT/ML SUBCUT SCH ×4 (08:20→20:26)
[2016-11-19] MEDS: LEVOTHYROXINE 112 MCG TABLET PO SCH (08:20)
[2016-11-19] MEDS: VANCOMYCIN INJ 1,500 MG in SODIUM CHLORIDE 0.9% 500 ML IV SCH (08:20)
[2016-11-19] MEDS: DESITIN 4OZ/NYSTATIN 15 GRAM MIXTURE PASTE TOP SCH ×2 (08:20→22:08)
[2016-11-19] MEDS: CLOPIDOGREL 75 MG TABLET PO SCH (08:20)
--- NOTE | 2016-11-19 10:43 | General Surgery Progress Note ---
Assessment and Plan (1) Chronic foot ulcer Status: Chronic Assessment and plan: Impression: 1. Ulcerations of the left second toe and posterior calf areas 2. Chronic venous stasis disease with scaling probably from blistering of the lower extremities. 3. Possible history of peripheral arterial disease with stenting of the right arterial system. 4. Recent history of deep vein thrombosis of left lower extremity 5. History of multiple traumas to the lower extremities left greater than right. 6. Prostate cancer status post radiation therapy 7. General paraplegia etiology of which is unclear at this time. Plan: Will start in maintains good wound care with compressive therapy to the lower extremities. Try to obtain some information and possible arteriograms from [facility] to see if we can understand what his circulatory status might be. Would be a little bit concerned fact that patient has to be on both Coumadin and Plavix at this time. Not sure if there is a better alternative to this process. 11/19/2016 Patient continues to improve from his leg standpoint. No ulcerations on the right lower extremity with a little callus material slowly coming off. Left lower extremity with the ulcers in the posterior aspect of the leg are much better with good granulating tissue present and we should start see some epithelialization closure soon. His cultures are positive and waiting for the final sensitivities on that to see what our best options are from a antibiotic pend[place]. Certainly this will affect his anticoagulation once started on antibiotics. Current Visit: No Qualifiers: Laterality: left Non-pressure ulcer stage: limited to breakdown of skin Qualified Code(s): L97.521 - Non-pressure chronic ulcer of other part of left foot limited to breakdown of skin Subjective Patient reports: Present: no new complaints, tolerating a regular diet, bowel movement, afebrile Exam - Constitutional Vitals: Period Temp Pulse Resp BP Sys/Jones Pulse Ox Last 24 Hr 97.5 F-98.9 F 59-70 17-20 99-129/49-73 92-99 General appearance: mild distress - Head Head exam: Present: normal inspection - ENT ENT exam: Present: normal exam - Neck Neck exam: Present: normal inspection - Respiratory Respiratory exam: Present: rales - Cardiovascular Cardiovascular exam: Present: RRR - GI/Abdominal GI/Abdominal exam: Present: hypoactive bowel sounds, soft - Extremities Exam Extremities exam: Present: edema (The left lower extremity the ulcers on the posterior aspect legs have good granulating bases to him with no sign of any infection present this time.), other (Swelling of both lower extremities is much improved with the dependent erythematous and rubor changes slowly improving. Right lower extremity flaky callus material is slowly coming off with no ulcerations underneath him. The heel seems to be the main area and thus must be moisturize better) - Back Exam Back exam: Present: normal inspection - Neurological Exam Neurological exam: Present: alert, oriented X3, CN II-XII intact - Skin Skin exam: Present: normal color, warm, dry Results - Labs CBC & BMP: 11/19/16 05:34 11/19/16 05:34 Lab Results: I have reviewed the past 24 hour labs Quality Measures - VTE Contraindication to Mechanical VTE Prophylaxis: Local Inflammation
--- NOTE | 2016-11-19 13:46 | Hospitalist Progress Note ---
Assessment and Plan (1) Chronic foot ulcer Status: Chronic Assessment and plan: Wound cultures growing gram negative rods and gram positive cocci. On vancomycin and zosyn. Surgery following. MRI showed evidence of cellulitis and osteomyelitis was not obvious although it was difficult to tell. Plan: continue with IV Zosyn and Vancomycin. Continue with wound dressings. Current Visit: No Qualifiers: Laterality: left Non-pressure ulcer stage: limited to breakdown of skin Qualified Code(s): L97.521 - Non-pressure chronic ulcer of other part of left foot limited to breakdown of skin (2) Acute kidney injury Status: Acute Assessment and plan: slowly improving Current Visit: Yes (3) Hypothyroidism Status: Acute Assessment and plan: Markedly elevated TSH, will increase Levothyroxine from 112mcg to 125mcg daily, will need outpatient follow up. Current Visit: Yes (4) COPD (chronic obstructive pulmonary disease) Status: Chronic Assessment and plan: stable Current Visit: Yes Hospitalist: Subjective Interval history: Patient feels okay and has no new complaints.MRI of the foot showed evidence of cellulitis and difficult to rule out osteomyelitis although non was seen. Exam - Constitutional Vitals: Period Temp Pulse Resp BP Sys/Jones Pulse Ox Last 24 Hr 98.0 F-98.9 F 59-70 17-20 109-129/50-73 92-98 General appearance: no acute distress - Head Head exam: Present: normal inspection - Neck Neck exam: Present: normal inspection - Respiratory Respiratory exam: Present: clear to auscultation bilaterally - Cardiovascular Cardiovascular exam: Present: regular rate and rhythm - GI/Abdominal GI/Abdominal exam: Present: normal bowel sounds - Extremities Exam Extremities exam: Present: other (bilateral leg dressings) Results - Labs CBC & BMP: 11/19/16 05:34 11/19/16 05:34 Lab Results: I have reviewed the past 24 hour labs Quality Measures - VTE Contraindication to Mechanical VTE Prophylaxis: Local Inflammation
[2016-11-19] MEDS: CHLORHEXIDINE 4% SOLN 118 ML BOTTLE TOP SCH (14:14)
[2016-11-19] MEDS: SKIN HEALING OINT (AQUAPHOR) 50 GM TUBE TOP SCH (14:14)
[2016-11-19] MEDS: COLLAGENASE OINT 30 GM TUBE TOP SCH (14:15)
[2016-11-19] MEDS: NYSTATIN POWDER 15 GM BOTTLE TOP SCH (14:15)
[2016-11-19] MEDS: LEVOTHYROXINE 125 MCG TABLET PO SCH (14:16)
[2016-11-19] MEDS ORDERED: SODIUM CHLORIDE 0.9% 250 ML IV PRN (14:22)
[2016-11-19] MEDS: WARFARIN 5 MG TABLET PO SCH (18:36)
[2016-11-20] MEDS: PIPERACILLIN/TAZOBACTAM 3,375 MG in SODIUM CHLORIDE 0.9% 100 ML IV SCH ×3 (05:30→20:34)
[2016-11-20] MEDS: LEVOTHYROXINE 125 MCG TABLET PO SCH (06:01)
[2016-11-20 06:40] LABS: Basophils % 0.4 % (0.0-0.8); Eosinophils # 0.7 10*3/uL (0.0-0.87); Eosinophils % 9.2 % (0.00-10.9); Hematocrit 29.9 VOL% (42.0-52.0); Immature Granulocytes % 0.4 %; Immature Granulocytes Absolute 0.03 #; Lymphocytes # 0.6 10*3/uL (1.4-4.0); Lymphocytes % 7.6 % (21.2-54.2); Mean Corpuscular HGB Conc 33.8 GM/DL (32-36); Mean Corpuscular Hemoglobin 32 PG (27-34); Mean Corpuscular Volume 93.1 FL (87-102); Monocytes # 0.9 10*3/uL (0.11-0.8); Monocytes % 10.9 % (1.7-12.7); Neutrophils # 5.6 10*3/uL (1.4-7.4); Neutrophils % 71.5 % (38.7-73.9); Platelet Count 190 T/CUMM (130-400); Red Cell Distribution Width 16.8 % (9.3-17.3); White Blood Count 7.8 T/CUMM (4-12)
[2016-11-20 06:41] LABS: Red Blood Count 3.21 MC/CUMM (3.8-5.5)
[2016-11-20 06:42] LABS: Hemoglobin 10.1 GM/DL (14.0-18.0)
[2016-11-20 07:07] LABS: Calcium 7.6 MG/DL (8.5-10.1); Potassium 3.8 MMOL/L (3.5-5.1)
[2016-11-20] MEDS: DESITIN 4OZ/NYSTATIN 15 GRAM MIXTURE PASTE TOP SCH ×2 (08:29→20:37)
[2016-11-20] MEDS: INSULIN LISPRO 100 UNIT/ML SUBCUT SCH ×4 (08:29→20:36)
[2016-11-20] MEDS: NYSTATIN POWDER 15 GM BOTTLE TOP SCH (08:29)
[2016-11-20] MEDS: fentaNYL 50 MCG/HR PATCH TRANSDERM SCH (08:30)
[2016-11-20] MEDS: COLLAGENASE OINT 30 GM TUBE TOP SCH (08:30)
[2016-11-20] MEDS: SKIN HEALING OINT (AQUAPHOR) 50 GM TUBE TOP SCH (08:30)
[2016-11-20] MEDS: SODIUM CHLORIDE 0.9% 1,000 ML IV SCH ×2 (08:30→17:39)
[2016-11-20] MEDS: CLOPIDOGREL 75 MG TABLET PO SCH (08:31)
[2016-11-20] MEDS: CHLORHEXIDINE 4% SOLN 118 ML BOTTLE TOP SCH (08:31)
[2016-11-20] MEDS: PREGABALIN 75 MG CAPSULE PO SCH ×2 (08:31→20:34)
[2016-11-20] MEDS: PANTOPRAZOLE 40 MG TABLET PO SCH (08:31)
[2016-11-20] MEDS: VANCOMYCIN INJ 1,500 MG in SODIUM CHLORIDE 0.9% 500 ML IV SCH (08:40)
--- NOTE | 2016-11-20 13:07 | General Surgery Progress Note ---
Assessment and Plan - Time spent with patient Time spent with patient: Less than 30 minutes (1) Chronic foot ulcer Status: Chronic Assessment and plan: Impression: 1. Ulcerations of the left second toe and posterior calf areas 2. Chronic venous stasis disease with scaling probably from blistering of the lower extremities. 3. Possible history of peripheral arterial disease with stenting of the right arterial system. 4. Recent history of deep vein thrombosis of left lower extremity 5. History of multiple traumas to the lower extremities left greater than right. 6. Prostate cancer status post radiation therapy 7. General paraplegia etiology of which is unclear at this time. Plan: Will start in maintains good wound care with compressive therapy to the lower extremities. Try to obtain some information and possible arteriograms from [facility] to see if we can understand what his circulatory status might be. Would be a little bit concerned fact that patient has to be on both Coumadin and Plavix at this time. Not sure if there is a better alternative to this process. 11/19/2016 Patient continues to improve from his leg standpoint. No ulcerations on the right lower extremity with a little callus material slowly coming off. Left lower extremity with the ulcers in the posterior aspect of the leg are much better with good granulating tissue present and we should start see some epithelialization closure soon. His cultures are positive and waiting for the final sensitivities on that to see what our best options are from a antibiotic pendleton. Certainly this will affect his anticoagulation once started on antibiotics. 11/20/2016 Patient is afebrile and the both legs are looking much better with less edema edema associated with them. The ulcer of the left are better flat with good granulating base but the cultures are positive on that side for 3 organisms. Do not think she needs the Vicodin anymore since that is a potential renal problem was associated with that but it is covered by the Zosyn at this time. The enterococcus needs to be covered with a penicillin or Augmentin and I will add that at this point. He may be able to be treated as an outpatient with Levaquin and Augmentin in order to clear these wound beds. With him being on Coumadin and Plavix the antibiotics may make these worse it is hard to say at this point. We could look into the possibility of topical antibiotics at the see if that would be simpler and safer for him. He needs continued compressive therapy and we have the Farrow wraps coming at this time which will make it simple for the to care for these legs. I reviewed the records that we did have that we still do not have a complete record of the arteriograms that were performed in order to know what the left side looks like. We also did not have the report on the venous Doppler that was performed a couple weeks ago to understand about the clot that there is an AC on the left side. We will try to obtain these. Current Visit: No Qualifiers: Laterality: left Non-pressure ulcer stage: limited to breakdown of skin Qualified Code(s): L97.521 - Non-pressure chronic ulcer of other part of left foot limited to breakdown of skin Subjective Patient reports: Present: no new complaints, feels better, tolerating a regular diet, bowel movement, afebrile Exam - Constitutional Vitals: Period Temp Pulse Resp BP Sys/Jones Pulse Ox Last 24 Hr 97.7 F-98.4 F 57-83 16-20 104-136/51-70 94-100 General appearance: mild distress - Head Head exam: Present: normal inspection - ENT ENT exam: Present: normal exam - Neck Neck exam: Present: normal inspection - Respiratory Respiratory exam: Present: rales - Cardiovascular Cardiovascular exam: Present: RRR - GI/Abdominal GI/Abdominal exam: Present: hypoactive bowel sounds, soft - Extremities Exam Extremities exam: Present: normal inspection, other (Right lower extremity looks better with the scaling pretty much gone at this time little bit on the heel lift but is much improved. Left lower extremity exam extremities are in pretty good shape with the ulcers in the posterior calf area flat with good granulating base in the area on the second toe looking much better.) - Back Exam Back exam: Present: normal inspection - Neurological Exam Neurological exam: Present: alert, oriented X3, CN II-XII intact - Skin Skin exam: Present: normal color, warm, dry Results - Labs CBC & BMP: 11/20/16 05:45 11/20/16 05:45 Lab Results: I have reviewed the past 24 hour labs Quality Measures - VTE Contraindication to Mechanical VTE Prophylaxis: Local Inflammation
[2016-11-20] MEDS: AMOXICILLIN/CLAV 500 MG TABLET PO SCH ×2 (14:33→20:34)
[2016-11-20] MEDS: ALBUTEROL/IPRATROPIUM 3 ML NEB RESP TX PRN (15:11)
--- NOTE | 2016-11-20 16:01 | Hospitalist Progress Note ---
Assessment and Plan (1) Chronic foot ulcer Status: Chronic Assessment and plan: Wound cultures grew multiple organisms-Pseudomonas,Enterococcus, Staph, stenotrophomonas. Continue IV vancomycin and zosyn. We will consult ID. Surgery following. MRI showed evidence of cellulitis and osteomyelitis was not obvious although it was difficult to tell. Plan: continue with IV Zosyn and Vancomycin. Continue with wound dressings. Current Visit: No Qualifiers: Laterality: left Non-pressure ulcer stage: limited to breakdown of skin Qualified Code(s): L97.521 - Non-pressure chronic ulcer of other part of left foot limited to breakdown of skin (2) Acute kidney injury Status: Acute Assessment and plan: slowly improving Current Visit: Yes (3) Hypothyroidism Status: Acute Assessment and plan: Markedly elevated TSH, continue with increased dose of Levothyroxine from 112mcg to 125mcg daily, will need outpatient follow up. Current Visit: Yes (4) COPD (chronic obstructive pulmonary disease) Status: Chronic Assessment and plan: stable Current Visit: Yes Hospitalist: Subjective Interval history: Patient seen. No new issues. Exam - Constitutional Vitals: Period Temp Pulse Resp BP Sys/Jones Pulse Ox Last 24 Hr 97.7 F-98.4 F 57-83 16-20 104-136/51-70 94-100 General appearance: no acute distress - Head Head exam: Present: normal inspection - Respiratory Respiratory exam: Present: clear to auscultation bilaterally - Cardiovascular Cardiovascular exam: Present: regular rate and rhythm - GI/Abdominal GI/Abdominal exam: Present: normal bowel sounds - Extremities Exam Extremities exam: Present: other (bilateral leg ulcer bandaged) Results - Labs CBC & BMP: 11/20/16 05:45 11/20/16 05:45 Lab Results: I have reviewed the past 24 hour labs Quality Measures - VTE Contraindication to Mechanical VTE Prophylaxis: Local Inflammation
[2016-11-20] MEDS: WARFARIN 5 MG TABLET PO SCH (17:04)
[2016-11-21] MEDS: PIPERACILLIN/TAZOBACTAM 3,375 MG in SODIUM CHLORIDE 0.9% 100 ML IV SCH ×3 (05:16→20:20)
[2016-11-21] MEDS: LEVOTHYROXINE 125 MCG TABLET PO SCH (06:01)
[2016-11-21] MEDS: AMOXICILLIN/CLAV 500 MG TABLET PO SCH ×3 (06:01→20:31)
--- NOTE | 2016-11-21 08:32 | General Surgery Progress Note ---
Assessment and Plan - Time spent with patient Time spent with patient: Less than 30 minutes (1) Chronic foot ulcer Status: Chronic Assessment and plan: Impression: 1. Ulcerations of the left second toe and posterior calf areas 2. Chronic venous stasis disease with scaling probably from blistering of the lower extremities. 3. Possible history of peripheral arterial disease with stenting of the right arterial system. 4. Recent history of deep vein thrombosis of left lower extremity 5. History of multiple traumas to the lower extremities left greater than right. 6. Prostate cancer status post radiation therapy 7. General paraplegia etiology of which is unclear at this time. Plan: Will start in maintains good wound care with compressive therapy to the lower extremities. Try to obtain some information and possible arteriograms from [facility] to see if we can understand what his circulatory status might be. Would be a little bit concerned fact that patient has to be on both Coumadin and Plavix at this time. Not sure if there is a better alternative to this process. 11/19/2016 Patient continues to improve from his leg standpoint. No ulcerations on the right lower extremity with a little callus material slowly coming off. Left lower extremity with the ulcers in the posterior aspect of the leg are much better with good granulating tissue present and we should start see some epithelialization closure soon. His cultures are positive and waiting for the final sensitivities on that to see what our best options are from a antibiotic pendleton. Certainly this will affect his anticoagulation once started on antibiotics. 11/20/2016 Patient is afebrile and the both legs are looking much better with less edema edema associated with them. The ulcer of the left are better flat with good granulating base but the cultures are positive on that side for 3 organisms. Do not think she needs the Vicodin anymore since that is a potential renal problem was associated with that but it is covered by the Zosyn at this time. The enterococcus needs to be covered with a penicillin or Augmentin and I will add that at this point. He may be able to be treated as an outpatient with Levaquin and Augmentin in order to clear these wound beds. With him being on Coumadin and Plavix the antibiotics may make these worse it is hard to say at this point. We could look into the possibility of topical antibiotics at the see if that would be simpler and safer for him. He needs continued compressive therapy and we have the Farrow wraps coming at this time which will make it simple for the to care for these legs. I reviewed the records that we did have that we still do not have a complete record of the arteriograms that were performed in order to know what the left side looks like. We also did not have the report on the venous Doppler that was performed a couple weeks ago to understand about the clot that there is an AC on the left side. We will try to obtain these. 11/21/2016. Culture results are mixed with the pseudomonas someone being sensitive to gentamicin and resistant on another culture. I received some additional information from [facility] that shows that he does have an small decreased flow to the left lower extremity with an index of 0.58 which is borderline for healing. Also found out and clarified from him that he was never put on the Plavix and the Coumadin combination dilapidated stents on the right. Apparently according to him they were planning possibly some standing on the left when they ran into some other problems that delayed that. He had indicated that he had a blockage which we were feeling was a blood clot in the veins on the left side but his ultrasounds on 09/20 did not show any deep vein thrombosis of that left lower extremity. At this point we are still trying to obtain a true arteriogram from as per clinic to see if they did some studies to see exactly what his flow status is in that lower extremity. Maintain present wound care at this time. Current Visit: No Qualifiers: Laterality: left Non-pressure ulcer stage: limited to breakdown of skin Qualified Code(s): L97.521 - Non-pressure chronic ulcer of other part of left foot limited to breakdown of skin Subjective Patient reports: Present: no new complaints, afebrile Exam - Constitutional Vitals: Period Temp Pulse Resp BP Sys/Jones Pulse Ox Last 24 Hr 98.2 F-98.7 F 60-110 16-110 110-131/53-69 91-98 General appearance: mild distress - Head Head exam: Present: normal inspection - ENT ENT exam: Present: normal exam - Neck Neck exam: Present: normal inspection - Respiratory Respiratory exam: Present: rales, rhonchi - Cardiovascular Cardiovascular exam: Present: RRR - GI/Abdominal GI/Abdominal exam: Present: normal bowel sounds, soft - Extremities Exam Extremities exam: Present: other (No change) - Neurological Exam Neurological exam: Present: alert, oriented X3, CN II-XII intact - Skin Skin exam: Present: normal color, warm, dry Results - Labs CBC & BMP: 11/20/16 05:45 11/20/16 05:45 Quality Measures - VTE Contraindication to Mechanical VTE Prophylaxis: Local Inflammation
[2016-11-21] MEDS: INSULIN LISPRO 100 UNIT/ML SUBCUT SCH ×4 (09:02→20:30)
[2016-11-21] MEDS: DESITIN 4OZ/NYSTATIN 15 GRAM MIXTURE PASTE TOP SCH ×2 (10:12→20:22)
[2016-11-21] MEDS: SODIUM CHLORIDE 0.9% 1,000 ML IV SCH (10:12)
[2016-11-21] MEDS: CLOPIDOGREL 75 MG TABLET PO SCH (10:13)
[2016-11-21] MEDS: PANTOPRAZOLE 40 MG TABLET PO SCH (10:13)
[2016-11-21] MEDS: PREGABALIN 75 MG CAPSULE PO SCH ×2 (10:13→20:23)
[2016-11-21] MEDS: SKIN HEALING OINT (AQUAPHOR) 50 GM TUBE TOP SCH (10:13)
[2016-11-21] MEDS: CHLORHEXIDINE 4% SOLN 118 ML BOTTLE TOP SCH (10:13)
[2016-11-21] MEDS: COLLAGENASE OINT 30 GM TUBE TOP SCH (10:14)
[2016-11-21] MEDS: NYSTATIN POWDER 15 GM BOTTLE TOP SCH (10:15)
--- NOTE | 2016-11-21 12:44 | Hospitalist Progress Note ---
Assessment and Plan (1) Chronic foot ulcer Status: Chronic Assessment and plan: Wound cultures grew multiple organisms-Pseudomonas,Enterococcus, Staph, stenotrophomonas. Continue IV vancomycin and zosyn. We will consult ID. Surgery following. MRI showed evidence of cellulitis and osteomyelitis was not obvious although it was difficult to tell. Plan: continue with IV Zosyn, Vancomycin and po Augmentin. Continue with wound dressings. Await ID's input Current Visit: No Qualifiers: Laterality: left Non-pressure ulcer stage: limited to breakdown of skin Qualified Code(s): L97.521 - Non-pressure chronic ulcer of other part of left foot limited to breakdown of skin (2) Acute kidney injury Status: Acute Assessment and plan: slowly improving Current Visit: Yes (3) Hypothyroidism Status: Acute Assessment and plan: Markedly elevated TSH, continue with increased dose of Levothyroxine from 112mcg to 125mcg daily, will need outpatient follow up. Current Visit: Yes (4) COPD (chronic obstructive pulmonary disease) Status: Chronic Assessment and plan: stable Current Visit: Yes Hospitalist: Subjective Interval history: Patient was seen lying comfortably in bed Wound culture grew multiple organism, ID is to see. Exam - Constitutional Vitals: Period Temp Pulse Resp BP Sys/Jones Pulse Ox Last 24 Hr 97.1 F-98.7 F 60-110 16-110 110-131/60-69 91-98 General appearance: no acute distress - Head Head exam: Present: normal inspection - Eye Eye exam: Present: EOMI - ENT ENT exam: Present: normal exam - Respiratory Respiratory exam: Present: clear to auscultation bilaterally - Cardiovascular Cardiovascular exam: Present: regular rate and rhythm - GI/Abdominal GI/Abdominal exam: Present: normal bowel sounds - Extremities Exam Extremities exam: Present: other (bilateral leg bandaged, dressings look clean) Results - Labs CBC & BMP: 11/20/16 05:45 11/20/16 05:45 Lab Results: I have reviewed the past 24 hour labs Quality Measures - VTE Contraindication to Mechanical VTE Prophylaxis: Local Inflammation
--- NOTE | 2016-11-21 12:58 | Infectious Disease Consult ---
Assessment and Plan (1) Tinea pedis of both feet Status: Acute Assessment and plan: Quite severe on Rt foot. Tinea pedis increases his risk for recurrent cellulitis. REcommendations: Lamisil 250mg po daily x 2 weeks Current Visit: Yes (2) Cellulitis Status: Acute Assessment and plan: Per patient legs are back to baseline so it seems his cellulitis treatment with vanc and Zosyn is just about complete. Current Visit: Yes Qualifiers: Site of cellulitis: extremity Site of cellulitis of extremity: lower extremity Laterality: unspecified laterality Qualified Code(s): L03.119 - Cellulitis of unspecified part of limb (3) Venous stasis ulcers of both lower extremities Status: Acute Assessment and plan: These ulcers are chronic and will also culture positive if swabbed. My recommendation is for local wound care rather than systemic antibiotic therapy. I also don't think he will benefit from topical antibiotic Tx. The crespo is keeping the wounds clean and minimizing edema. Thank you very much for the consult. Current Visit: Yes History of Present Illness Chief complaint: Chronic leg wounds History of present illness: Mr. Lu was a poor historian so history corroborated by review of chart. He is a 76 year old with h/o chronic venous insufficiency as resulting bilateral leg swelling and ulcers for over 3 years. He was brought in by his family for AMS and incidentally assessed as having cellulitis. Two of the ulcers present were cultured and multiple organisms grew. He has been on vanc & Zosyn. He is almost ready to be discharged and I am asked to recommend topical antibiotic Tx for home. No fever or leukocytosis since admission. Pt says he's ready to go home. Home Medications Medication Instructions Recorded Confirmed Type Baclofen Tab [Lioresal] 10 mg PO DAILY 10/24/14 11/16/16 History Furosemide Tab [Lasix Tab] 80 mg PO BID 10/24/14 11/16/16 History Pantoprazole Tab [Protonix Tab] 40 mg PO DAILY 10/24/14 11/16/16 History Potassium Chloride Tab [K Dur] 20 meq PO BID 10/24/14 11/16/16 History Levothyroxine Tab [Synthroid Tab] 112 mcg PO DAILY 04/17/16 11/16/16 History Magnesium Oxide [Magox 400] 2,000 mg PO TID 04/17/16 11/16/16 History Pregabalin [Lyrica] 75 mg PO BID 04/17/16 11/16/16 History Umeclidinium Brm/Vilanterol Tr 1 puff INH DAILY 04/17/16 11/16/16 History [Anoro Ellipta] fentaNYL 100 MCG/HR PATCH 1 patch TRANSDERM Q3DAY #5 patch 05/06/16 11/16/16 Rx [Duragesic 100 Patch] Albuterol Sulfate [Ventolin HFA] 2 puff INH Q4H PRN 07/08/16 11/16/16 History Clindamycin HCl [Clindamycin Cap] 300 mg PO QID 07/08/16 11/16/16 History Diphenoxylate/Atrop 2.5-0.025 2 each PO Q6H PRN 07/08/16 11/16/16 History [Lomotil Tab] Temazepam 30 mg PO BEDTIME PRN 07/08/16 11/16/16 History metOLazone [Metolazone] 5 mg PO BID 07/08/16 11/16/16 History Clopidogrel [Plavix] 75 mg PO DAILY 11/16/16 11/16/16 History Warfarin Sodium [Jantoven] 5 mg PO DAILY 11/16/16 11/16/16 History Allergies Allergy/AdvReac Type Severity Reaction Status Date / Time No Known Allergies Allergy Verified 10/24/14 12:10 12 point system: reviewed and no additional remarkable complaints except as stated (per HPI) Medical,Surgical,& Family Hx - Medical History Cardio: History of: CHF, CAD (50% LAD lesion) No history of: Hypertension Neurology: History of: Cerebrovascular Accident (had 10 years) No history of: Seizures HEENT: History of: Eye Problem (Glasses) Endocrine: History of: Thyroid Disorder Respiratory: History of: COPD Genitourinary: History of: Prostate Problems (prostate cancer) Gastrointestinal: History of: GERD, GI Problems (Chronic diarrhea about 8 years) No history of: Clostridium Difficile Musculoskeletal: History of: Back/Neck Problems (Back pain, chronic. Treated at pain clinic. Neck injury 3 crushed vertebrae), Musculoskeletal Problems Hematology: No history of: Blood Transfusion Reaction Other: History of: Cancer (Prostate) No history of: Anesthesia Reactions - Surgical History Cardiac Surgeries: Patient Denies: Cardiac Catheterization Thoracic Surgeries: Patient denies;: Organ Transplant Neurologic Surgeries: Patient denies: Neurologic Surgery Abdominal Surgeries: Surgical HX of: Abdominal Surgery, Cholecystectomy Reproductive Surgeries: Surgical HX of;: Cystoscopy Orthopedic Surgeries: Surgical HX of;: Orthopedic Surgery (wrist surgery, hip surgery, neck sugery and back surgery) - Family History Family History: Reports;: Family Cancer (Skin (Uncle)), Family Diabetes (Mother) , Family Heart Disease (Uncle, Grandfather:Father (PR)), Family Hypertension ( Mother) - Social History Smoking Status: Former smoker (But smoking 20 years ago) Frequency of Alcohol Use: Frequently Type of Drug Use: None Infectious Disease Exam H&P - Constitutional Vitals: Vital Signs Temp Pulse Resp BP Pulse Ox 98.1 F 57 L 20 119/53 96 11/21/16 12:00 11/21/16 12:00 11/21/16 12:00 11/21/16 12:00 11/21/16 12:00 Intake and Output 11/20/16 11/21/16 11/21/16 23:59 07:59 15:59 Intake Total 340 / 340 145 / 145 1100 / 1100 Balance 340 / 340 145 / 145 1100 / 1100 Intake: IV 100 / 100 100 / 100 1100 / 1100 Zosyn 3,375 mg In Ns 100 100 / 100 100 / 100 100 / 100 ml @ 25 mls/hr IV Q8H EDWNI Rx#:[id number] Ns 1,000 ml @ 75 mls/hr 1000 / 1000 IV .[id number] EDWIN Rx#: [id number] Oral 240 / 240 45 / 45 Other: Voiding Method Diaper Diaper # Voids 1 3 # Bowel Movements 1 1 Weight 102.994 kg Patient Weight 11/21/16 23:59 Weight 102.994 kg Exam: General: Patient comfortable but chronically ill looking HEENT: Mucous membranes pink and moist, anicteric acyanotic, MIKAL, no oropharyngeal exudates Neck: Supple, no thyroid gland enlargement, no lymphadenopathy Respiratory system: Breath sounds vesicular, no crepitations or wheezes Cardiovascular: Normal S1 and S2, no murmurs appreciated Abdomen: Normal bowel sounds, soft nontender throughout, no organomegaly or mass Genitourinary: No suprapubic pain or bladder distention, clear urine from Newell catheter Extremities: chronic non-pitting bilateral LE edema with thickening and discoloration of the skin. THere are shallow ulcers of various sizes scattered over legs and feet. There is maceration between all his toes, Rt > Lt. Skin: No rash (other than chronic changes to legs) Reports - Labs CBC & BMP: 11/20/16 05:45 11/20/16 05:45 Labs: Laboratory Results - last 24 hr 11/20/16 11/20/16 11/21/16 15:57 20:04 07:20 POC Glucose 114 H 117 H 82 11/21/16 12:19 POC Glucose 108 H - Reports Microbiology: Microbiology 11/17/16 11:30 Wound Culture - Final Toe - Left Second Pseudomonas aeruginosa Enterococcus faecalis Proteus vulgaris 11/17/16 11:30 Wound Culture - Final Leg - Left Enterococcus faecalis Staphylococcus sciuri Pseudomonas aeruginosa Stenotrophomonas maltophilia - Diagnostic Findings Procedure: MRI: report reviewed by me (no convincing evidence of osteo), X-ray: report reviewed by me
[2016-11-21] MEDS: TERBINAFINE 250 MG TABLET PO SCH (13:38)
[2016-11-21] MEDS: WARFARIN 5 MG TABLET PO SCH (18:05)
[2016-11-22] MEDS: PIPERACILLIN/TAZOBACTAM 3,375 MG in SODIUM CHLORIDE 0.9% 100 ML IV SCH ×3 (05:16→20:38)
[2016-11-22] MEDS: SODIUM CHLORIDE 0.9% 1,000 ML IV SCH ×3 (05:16→12:03)
[2016-11-22 06:23] LABS: Basophils # 0.1 10*3/uL (0.0-0.2); Basophils % 1.1 % (0.0-0.8); Eosinophils # 0.7 10*3/uL (0.0-0.87); Hematocrit 29.8 VOL% (42.0-52.0); Hemoglobin 9.8 GM/DL (14.0-18.0); Immature Granulocytes % 0.2 %; Immature Granulocytes Absolute 0.01 #; Lymphocytes # 0.7 10*3/uL (1.4-4.0); Lymphocytes % 12.1 % (21.2-54.2); Mean Corpuscular HGB Conc 32.9 GM/DL (32-36); Mean Corpuscular Hemoglobin 31 PG (27-34); Mean Corpuscular Volume 93.4 FL (87-102); Mean Platelet Volume 10.1 FL (9.6-12.0); Monocytes # 0.7 10*3/uL (0.11-0.8); Monocytes % 13.6 % (1.7-12.7); Neutrophils # 3.3 10*3/uL (1.4-7.4); Platelet Count 202 T/CUMM (130-400); Red Blood Count 3.19 MC/CUMM (3.8-5.5); Red Cell Distribution Width 16.1 % (9.3-17.3); White Blood Count 5.5 T/CUMM (4-12)
[2016-11-22 06:48] LABS: Calcium 7.5 MG/DL (8.5-10.1); Osmolality,Calculated 279.3 MOS/KG (273-304); Potassium 3.9 MMOL/L (3.5-5.1)
[2016-11-22] MEDS: LEVOTHYROXINE 125 MCG TABLET PO SCH (06:48)
[2016-11-22] MEDS: AMOXICILLIN/CLAV 500 MG TABLET PO SCH (06:49)
[2016-11-22 07:11] LABS: Eosinophils 14 % (0-10); Lymphocytes 12 % (20-55); Segmented Neutrophils 63 % (50-85); Total Cells Counted 100
[2016-11-22 07:18] LABS: Hypochromasia 1+; Platelet Estimate Adequate
--- NOTE | 2016-11-22 08:08 | General Surgery Progress Note ---
Assessment and Plan (1) Venous stasis ulcers of both lower extremities Status: Acute Assessment and plan: 11/22/16 Bilateral lower extremity ulcerations secondary to mixed arterial and venous disease with cellulitis. These are much improved and from our perspective , he could be discharged home with Home Health. He has responded to systemic antibiotics and local care, and we do not recommend additional antibiotics. Will continue daily Santyl dressings, control moisture and swelling, and plan to see him again in 3 weeks. We prefer he goes home after the Farrow Wraps are delivered, however there is some confusion as to the timing of this, as we were told they were supposed to be here yesterday. Nurses are checking on this. At any rate, he could go home and have them placed at a later date but in my experience, we have seen a tremendous response and improvement in his ulcers and infection, and he will benefit most from continued consistent control of his venous stasis and lymphedema with this product. 11/18/2016 Chronic venous stasis ulcerations of both lower extremities. There does appear to be both gram positives and gram negatives growing on preliminary cultures. Patient is on vancomycin and local care. He does seem to be responding well to compression, and there is no evidence of any ischemic peripheral progression. There is still some confusion as to why he is on both Plavix and Coumadin, at this point however we will continue this therapy in order to protect his stents, while awaiting records from [facility]. Certainly there seems to be no evidence of any acute ischemic process, nor does he seem to have any evidence of any evolving thrombotic lower extremity sequela. He should respond well to consistent compression, local care plus the systemic antibiotics. Current Visit: Yes Subjective Patient reports: Present: no new complaints, feels better, pain is less Exam - Constitutional Vitals: Period Temp Pulse Resp BP Sys/Jones Pulse Ox Last 24 Hr 97.5 F-99.6 F 56-67 18-20 115-139/53-83 94-98 General appearance: no acute distress, over weight - Extremities Exam Extremities exam: Present: other (LLE edema is well controlled today; there is no weeping and erythema has now resolved. His wounds continue to decrease in size, with only superficial open areas remaining on the posterior left calf and a smaller, 2x0.6cm area on the dorsal left 2nd toe. Some increased moisture between the left toe webspaces but no unusual urticarial changes. Hyperkeratotic skin debris is slowly sloughing, and there doesn't seem to be any additional ulceration beneath this. On the right, he has essentially no open areas. There is no erythema, no unusual edema, only chronic venous stasis skin changes with resolving cellulitis and dermatitis. ) Results - Labs CBC & BMP: 11/22/16 05:43 11/22/16 05:43 Lab Results: I have reviewed the past 24 hour labs Quality Measures - VTE Contraindication to Mechanical VTE Prophylaxis: Local Inflammation
[2016-11-22] MEDS: INSULIN LISPRO 100 UNIT/ML SUBCUT SCH ×4 (08:51→21:09)
[2016-11-22] MEDS: DESITIN 4OZ/NYSTATIN 15 GRAM MIXTURE PASTE TOP SCH ×2 (08:52→21:11)
[2016-11-22] MEDS: TERBINAFINE 250 MG TABLET PO SCH (08:52)
[2016-11-22] MEDS: CLOPIDOGREL 75 MG TABLET PO SCH (08:52)
[2016-11-22] MEDS: PREGABALIN 75 MG CAPSULE PO SCH ×2 (08:52→20:36)
[2016-11-22] MEDS: PANTOPRAZOLE 40 MG TABLET PO SCH (08:52)
[2016-11-22] MEDS: NYSTATIN POWDER 15 GM BOTTLE TOP SCH (08:53)
[2016-11-22] MEDS: COLLAGENASE OINT 30 GM TUBE TOP SCH (08:53)
[2016-11-22] MEDS: CHLORHEXIDINE 4% SOLN 118 ML BOTTLE TOP SCH (08:53)
[2016-11-22] MEDS: SKIN HEALING OINT (AQUAPHOR) 50 GM TUBE TOP SCH (08:53)
--- NOTE | 2016-11-22 09:46 | Infectious Disease Progress ---
Assessment and Plan (1) Tinea pedis of both feet Status: Acute Assessment and plan: REcommendations: Continue Lamisil 250mg po daily x 2 weeks total Current Visit: Yes (2) Cellulitis Status: Acute Assessment and plan: Clinically resolved therefore we can stop antibiotics. Current Visit: Yes Qualifiers: Site of cellulitis: extremity Site of cellulitis of extremity: lower extremity Laterality: unspecified laterality Qualified Code(s): L03.119 - Cellulitis of unspecified part of limb (3) Venous stasis ulcers of both lower extremities Status: Acute Assessment and plan: These ulcers are chronic and will always culture positive if swabbed. My recommendation is for local wound care rather than systemic antibiotic therapy. I also don't think he will benefit from topical antibiotic Tx. okay to go home today from my standpoint. Current Visit: Yes Infectious Disease - PN: Subj Interval history: Patient doing okay, he wants to go home today. No fever or other complaints. Legs are baseline in his opinion. Infectious Disease Exam (PN) - Constitutional Vitals: Temp Pulse Resp BP Pulse Ox 97.5 F L 56 L 20 115/54 98 11/22/16 04:00 11/22/16 04:00 11/22/16 04:00 11/22/16 04:00 11/22/16 04:00 General appearance: no acute distress, over weight Exam: General appearance: no acute distress - Eye Eye exam: Present: EOMI. no icterus Pupils: Present: MIKAL - ENT ENT exam: no oral exudates - Respiratory Respiratory exam: vesicular BS, no crepitations or wheezes - Cardiovascular Cardiovascular exam: regular rate and rhythm, no murmurs - GI/Abdominal GI/Abdominal exam: normal bowel sounds, soft, non-tender, no organomegaly or mass - Extremities Exam Extremities exam: Chronic nonpitting bilateral leg edema, thickening of skin and scattered ulcerations which is shallow, no purulent drainage. Maceration between toes of both feet. - Skin Skin exam: no rash Results - Labs CBC & BMP: 11/22/16 05:43 11/22/16 05:43 Lab Results: I have reviewed the past 24 hour labs Quality Measures - VTE Contraindication to Mechanical VTE Prophylaxis: Local Inflammation Specialty Discharge - Follow Up or Referrals Follow up with: Austen Mills MD [Physician] - (3 WEEKS )
--- NOTE | 2016-11-22 12:52 | Hospitalist Progress Note ---
Assessment and Plan (1) Chronic foot ulcer Status: Chronic Assessment and plan: Wound cultures grew multiple organisms-Pseudomonas,Enterococcus, Staph, stenotrophomonas. Continue IV vancomycin and zosyn. We will consult ID. Surgery following. MRI showed evidence of cellulitis and osteomyelitis was not obvious although it was difficult to tell. Plan: continue current care DC planning Current Visit: No Qualifiers: Laterality: left Non-pressure ulcer stage: limited to breakdown of skin Qualified Code(s): L97.521 - Non-pressure chronic ulcer of other part of left foot limited to breakdown of skin (2) Acute kidney injury Status: Acute Assessment and plan: slowly improving Current Visit: Yes (3) Hypothyroidism Status: Acute Assessment and plan: Markedly elevated TSH, continue with increased dose of Levothyroxine from 112mcg to 125mcg daily, will need outpatient follow up. Current Visit: Yes (4) COPD (chronic obstructive pulmonary disease) Status: Chronic Assessment and plan: stable Current Visit: Yes Hospitalist: Subjective Interval history: Patient seen, discharge planning in progress. Exam - Constitutional Vitals: Period Temp Pulse Resp BP Sys/Jones Pulse Ox Last 24 Hr 97.1 F-99.6 F 56-67 12-20 115-139/54-83 94-98 General appearance: no acute distress - Head Head exam: Present: normal inspection - Respiratory Respiratory exam: Present: clear to auscultation bilaterally - GI/Abdominal GI/Abdominal exam: Present: normal bowel sounds - Extremities Exam Extremities exam: Present: other (bilateral chronic leg wound) Results - Labs CBC & BMP: 11/22/16 05:43 11/22/16 05:43 Lab Results: I have reviewed the past 24 hour labs Quality Measures - VTE Contraindication to Mechanical VTE Prophylaxis: Local Inflammation Specialty Discharge - Follow Up or Referrals Follow up with: Austen Mills MD [Physician] - (3 WEEKS )
[2016-11-22] MEDS: WARFARIN 5 MG TABLET PO SCH (17:37)
--- NOTE | 2016-11-22 18:37 | Ultrasound Report ---
Venous Doppler ultrasound bilateral lower extremities Indication: Swelling Comparison: None available Findings: No evidence of echogenic, noncompressible thrombus seen in the visualized veins of the extremities. Color Doppler venous waveform pattern is within normal limits. Stent is present in the right common femoral vein. Impression: No evidence of deep venous thrombosis. Ultrasound images stored and captured. PROCEDURE INTERPRETED AT [facility] DEPARTMENT OF RADIOLOGY Final Report Signed by: Dr. Hugo Hassan
[2016-11-22 19:39] LABS: INR 3.5
[2016-11-22 19:40] LABS: PT Patient Result 40.6 SECS
[2016-11-23] MEDS: PIPERACILLIN/TAZOBACTAM 3,375 MG in SODIUM CHLORIDE 0.9% 100 ML IV SCH ×2 (04:20→12:10)
[2016-11-23] MEDS: LEVOTHYROXINE 125 MCG TABLET PO SCH (06:03)
[2016-11-23] MEDS: SODIUM CHLORIDE 0.9% 1,000 ML IV SCH ×2 (06:22→12:10)
[2016-11-23 07:39] LABS: INR 3.7
[2016-11-23 07:41] LABS: PT Patient Result 42.8 SECS
[2016-11-23] MEDS: CLOPIDOGREL 75 MG TABLET PO SCH (08:26)
[2016-11-23] MEDS: PANTOPRAZOLE 40 MG TABLET PO SCH (08:26)
[2016-11-23] MEDS: SKIN HEALING OINT (AQUAPHOR) 50 GM TUBE TOP SCH (08:26)
[2016-11-23] MEDS: PREGABALIN 75 MG CAPSULE PO SCH (08:26)
[2016-11-23] MEDS: TERBINAFINE 250 MG TABLET PO SCH (08:26)
[2016-11-23] MEDS: fentaNYL 50 MCG/HR PATCH TRANSDERM SCH (08:28)
[2016-11-23] MEDS: INSULIN LISPRO 100 UNIT/ML SUBCUT SCH ×2 (08:28→12:08)
[2016-11-23] MEDS: CHLORHEXIDINE 4% SOLN 118 ML BOTTLE TOP SCH (08:28)
[2016-11-23] MEDS: NYSTATIN POWDER 15 GM BOTTLE TOP SCH (08:29)
[2016-11-23] MEDS: DESITIN 4OZ/NYSTATIN 15 GRAM MIXTURE PASTE TOP SCH (08:29)
[2016-11-23] MEDS: COLLAGENASE OINT 30 GM TUBE TOP SCH (08:29)
--- NOTE | 2016-11-23 10:33 | Discharge Summary ---
<Tierra Morataya - Last Filed: 11/23/16 09:37> Hospital Course - Hospital Course Hospital Course: Mr. Lu is a 76 year old male with past medical history that includes Jose's disease, COPD, stroke, coronary artery disease, prostate cancer, hypothyroidism and peripheral vascular disease the presented to the ED on 11/15 with a chief complaint by family of altered mental status. He recently had a stent placed in the right femoral artery and [place] and has had home health following since that time. Home health apparently nghia labs and due to some unknown abnormality called and told the family to proceed directly to the emergency department. Repeat labs in the ED indicated IVNH. Pt. also complained of pain to both feet which have ulcers. Wounds were noted to be foul smelling fluid. Pt. was admitted to the hospitalist service for further evaluation and treatment of vinh and what was presumed to be cellulitis. Pt. was started on IV antibiotics vancomycin and zosyn. Surgery was consulted to examine. Wound care of the affected areas was recommended and information was obtained from outside hospital. After examination, it was determined the ulcerations were not cellulitis but secondary to mixed arterial and ve Wound cultures were found to be positive (gram negative rods and gram positive cocci) . MRI also showed evidence of cellulitis and osteomyelitis. Pt. became anemic and 2 units of blood were transfused. Pt's mental status improved and kidney function normalized. Pt is stable. Pt. will be discharged home on topical antibiotics. Instructed to follow up as necessary. Specialty Discharge - Follow Up or Referrals Follow up with: Austen Mills MD [Physician] - (3 WEEKS ) Discharge Plan - Discharge Data Disposition: Home Health Service - Discharge Medications New Acetaminophen Tab [Tylenol Tab] 325 mg PO Q4H PRN #0 tablet PRN Reason: fever, headache/body aches Albuterol/Ipratropium Neb [Duoneb] 3 ml RESP TX RT Q6H PRN #0 PRN Reason: Shortness Of Breath/Wheezing Chlorhexidine 4% Soln [Hibiclens] 1 applic TOP DAILY #7 applic Collagenase Oint [Santyl Oint] 1 applic TOP DAILY applic Nystatin Powder [Mycostatin Powder] 1 applic TOP DAILY #7 applic Skin Healing Oint (Aquaphor) [Aquaphor] 1 applic TOP DAILY #7 applic Terbinafine Tab [LamISIL Tab] 250 mg PO DAILY #14 tablet Levothyroxine Tab [Synthroid Tab] 125 mcg PO DAILY@0700 #30 tablet Continue Pantoprazole Tab [Protonix Tab] 40 mg PO DAILY Baclofen Tab [Lioresal] 10 mg PO DAILY Furosemide Tab [Lasix Tab] 80 mg PO BID Potassium Chloride Tab [K Dur] 20 meq PO BID Umeclidinium Brm/Vilanterol Tr [Anoro Ellipta] 1 puff INH DAILY Pregabalin [Lyrica] 75 mg PO BID fentaNYL 100 MCG/HR PATCH [Duragesic 100 Patch] 1 patch TRANSDERM Q3DAY #5 patch Temazepam 30 mg PO BEDTIME PRN PRN Reason: Pain metOLazone [Metolazone] 5 mg PO BID Albuterol Sulfate [Ventolin HFA] 2 puff INH Q4H PRN PRN Reason: Shortness Of Breath/Wheezing Diphenoxylate/Atrop 2.5-0.025 [Lomotil Tab] 2 each PO Q6H PRN PRN Reason: Diarrhea Clopidogrel [Plavix] 75 mg PO DAILY Discontinued Magnesium Oxide [Magox 400] 2,000 mg PO TID Levothyroxine Tab [Synthroid Tab] 112 mcg PO DAILY Warfarin Sodium [Jantoven] 5 mg PO DAILY Clindamycin HCl [Clindamycin Cap] 300 mg PO QID - Follow Up or Referral Follow Up: Austen Mills MD [Physician] - (3 WEEKS ) - Forms/Instructions Instructions: Cellulitis (DC), Hypothyroidism (DC), Anemia (DC) Exam - Constitutional Vitals: Period Temp Pulse Resp BP Sys/Jones Pulse Ox Last 24 Hr 98.0 F-98.8 F 52-71 12-18 119-146/53-74 93-99 Discharge Results Labs on day of discharge: Labs from last 24 hours 11/23/16 11/23/16 11/23/16 11:35 07:54 05:45 INR 3.7 PT Patient/Control Mix 42.8 POC Glucose 93 75 11/22/16 11/22/16 11/22/16 20:16 19:03 17:03 INR 3.5 PT Patient/Control Mix 40.6 D POC Glucose 121 H 83 DS: Provider Date of admission: 11/16/16 01:51 Primary care physician: . No PCP Attending physician on admission: Gopal Fregoso MD Consults: 11/16/16 15:12 Consult to Physician [CONS] Routine Comment: Bilateral leg wounds Consulting Provider: Austen Mills Consult Notification Comment: MD oakes 11/17/16 11:38 Consult to Wound Care - [place] [CONS] Routine Reason for Wound Care: Wound Care Management 11/17/16 11:40 Consult to Case Mgmt/Social Srvs [CONS] Routine Reason for Case Mgmt/Social Srvs: Discharge Planning Consult Comment: needs pen[facility]entiary care of the legs 11/20/16 13:11 Consult to Case Mgmt/Social Srvs [CONS] Routine Reason for Case Mgmt/Social Srvs: Discharge Planning Home Health Other Consult Comment: See about Topical antibiotics to wounds( Vital care) 11/20/16 17:10 Consult to Physician [CONS] Routine Comment: Consulting Provider: Consult to Specialist Group: Infectious Disease When should Consulting Provider be notified: In am Person Notified: Dr. Rueda Date Notified: 11/21/16 Time Notified: 09:06 11/21/16 12:05 Consult to Physician [CONS] Routine Comment: Consulting Provider: Cassi Yung Consult Notification Comment: aware Discharging clinician: Tierra Morataya NP <Chelsea Lunsford - Last Filed: 11/23/16 13:04> Hospital Course - Hospital Course Hospital Course: MRI showed evidence of cellulitis and but osteomyelitis was not obvious although it was difficult to tell.No definite osteomyelitis was seen.ID saw in consultation and they recommended a local wound care rather than systemic antibiotic therapy. They didnt think he will benefit from topical antibiotic though. Patient would follow up with wound care and surgery as planned. Doppler USS showed no DVT in both legs.ID recommended Lamisil 250mg po daily x 2 weeks total. I have held the Coumadin because INR was 3.7 today. Patient needs an INR check on Friday and possibly start Coumadin at a lower dose. - Time spent with patient Time with patient DS: Greater than 30 minutes (Time spent: 45mins) Diagnosis - Discharge Diagnosis (1) Chronic foot ulcer Status: Chronic (2) Acute kidney injury Status: Acute (3) Hypothyroidism Status: Acute (4) COPD (chronic obstructive pulmonary disease) Status: Chronic Discharge Plan - Discharge Data Condition at Discharge: Stable Discharge Diet: advance to your usual diet Activity: resume usual activities as tolerated
[2016-11-23] MEDS ORDERED: FUROSEMIDE 40 MG/4 ML VIAL IV ONE (11:18)
[2016-11-23 12:17] VITALS: BP 133/65
== END 2016-11-23 14:43 | disposition home health service (06) | DRG 683 ==
LOC: EDUNIT# → EDBD → N.ED 20:47 → SUATTDRO 11-16 01:51 → N.EDINP 11-16 01:51 → N.5E 11-16 02:14
PROVIDERS: ADMIT Student in an Organized Health Care Education/Training Program; ATTEND Internal Medicine

== ENCOUNTER 2016-11-29 09:59 | Inpatient (IN) ==
--- NOTE | 2016-11-29 10:46 | XRay Report ---
History: Shortness of breath Date: 11/29/2016 Study: Chest x-ray AP portable Comparison exam: November 15, 2016 chest x-ray The cardiac silhouette is upper normal in size. Mediastinal contours are unchanged. There is moderate aortic arch calcification. The pulmonary vasculature is not engorged. There is no gross pleural effusion. There is mild platelike subsegmental atelectasis or scar in the left lower lung, similar to the previous study. There is no definite acute or worsening infiltrate. There is osteopenia and mild thoracic spondylosis. Surgical hardware overlies the lower cervical level. Impression: Stable platelike scar or subsegmental atelectasis left lower lung. Otherwise unchanged PROCEDURE INTERPRETED AT [facility] DEPARTMENT OF RADIOLOGY Final Report Signed by: Dr. Jelly Horton
--- NOTE | 2016-11-29 10:58 | EKG Report ---
Stationary ECG Study [facility] ER Test Date: 11/29/2016 10:11:36 AM Pat Name: DREW ANSARI Department: Room: Gender: M Clinical Lab Scientist: : 1940 Requested by: Ruiz Deleon Order Number: [id number] Reading MD: VIJAYA CELAYA Intervals [place] Rate: 83 P: 31 MT: 156 QRS: 0 QRSD: 79 T: 31 QT: 370 QTc: 410 Interpretive Statements SINUS RHYTHM Electronically Signed On 11-29-16 17:29:56 CDT by VIJAYA CELAYA [email or web address]
[2016-11-29 11:05] LABS: Basophils # 0.1 10*3/uL (0.0-0.2); Basophils % 0.5 % (0.0-0.8); Eosinophils # 0.8 10*3/uL (0.0-0.87); Eosinophils % 6.7 % (0.00-10.9); Hemoglobin 10.1 GM/DL (14.0-18.0); Immature Granulocytes % 0.5 %; Immature Granulocytes Absolute 0.06 #; Lymphocytes % 8.8 % (21.2-54.2); Mean Corpuscular HGB Conc 32.6 GM/DL (32-36); Mean Corpuscular Hemoglobin 30 PG (27-34); Mean Corpuscular Volume 91.7 FL (87-102); Mean Platelet Volume 10.1 FL (9.6-12.0); Monocytes # 0.6 10*3/uL (0.11-0.8); Monocytes % 5.5 % (1.7-12.7); Neutrophils # 9.1 10*3/uL (1.4-7.4); Platelet Count 289 T/CUMM (130-400); Red Blood Count 3.38 MC/CUMM (3.8-5.5); Red Cell Distribution Width 15.6 % (9.3-17.3); White Blood Count 11.6 T/CUMM (4-12)
--- NOTE | 2016-11-29 11:15 | Emergency Department Note ---
IIrais [place], am scribing for, and in the presence of, Ruiz Dorman MD 11:10. Lakia Jolly Charles R, MD, personally performed the services described in this documentation, ascribed by Oscar Braxton in my presence, and it is both accurate and complete . Arrival - Arrival Chief Complaint: Shortness of Breath Stated Complaint: OVERLOAD/CHF/SOB ED Nursing Triage Note: REPORTS SHORTNESS OF BREATH AND FLUID OVERLOAD TIMES ONE WEEK. LASIX WAS INCREASED 40MG TWICE DAILY RECENTLY. VASCULAR SURGERY LOWER EXTREMITIES WEEK AGO WITH COMPRESSION DRESSING PRESENT. LASIX 40MG GIVEN PER EMS Mode of Arrival: Stretcher Limitations: No Limitations Source: Patient Time Seen by Provider: 11/29/16 10:36 - History of Present Illness HPI Narrative: This is a 76 y/o white female presenting to the ED with c/o confusion, jerking motions in hands that are uncontrolled, and having trouble remembering things. He states the jerking has worsened over the course of a few weeks. Pt's called EMS because she thought he was SOB, pt denies being SOB. Pt had vascular surgery to his lower extremities one week ago per Dr. Rojas. Pt has compression dressing. Pt has chronic edema to his lower extremities bilaterally. 40mg of Lasix was given per EMS. He states he has a problem with urinary continence due to his kidney problems. He is c/o neck pain. Pt's PCP is Dr. Mcguire in [place]. His PMHx is consistent with CAD, CHF, cerebrovascualar accident, and prostate CA. Consistency: constant Severity: moderate Allergies/Adverse Reactions: Allergies Allergy/AdvReac Type Severity Reaction Status Date / Time No Known Allergies Allergy Verified 10/24/14 12:10 Home Medications: Home Medications Medication Instructions Recorded Confirmed Type Baclofen Tab [Lioresal] 10 mg PO DAILY 10/24/14 11/29/16 History Furosemide Tab [Lasix Tab] 80 mg PO BID 10/24/14 11/29/16 History Pantoprazole Tab [Protonix Tab] 40 mg PO DAILY 10/24/14 11/29/16 History Potassium Chloride Tab [K Dur] 20 meq PO BID 10/24/14 11/29/16 History Pregabalin [Lyrica] 75 mg PO BID 04/17/16 11/29/16 History Umeclidinium Brm/Vilanterol Tr 1 puff INH DAILY 04/17/16 11/29/16 History [Anoro Ellipta] fentaNYL 100 MCG/HR PATCH 1 patch TRANSDERM Q3DAY #5 patch 05/06/16 11/29/16 Rx [Duragesic 100 Patch] Albuterol Sulfate [Ventolin HFA] 2 puff INH Q4H PRN 07/08/16 11/29/16 History Diphenoxylate/Atrop 2.5-0.025 2 each PO Q6H PRN 07/08/16 11/29/16 History [Lomotil Tab] Temazepam 30 mg PO BEDTIME PRN 07/08/16 11/29/16 History metOLazone [Metolazone] 5 mg PO BID 07/08/16 11/29/16 History Clopidogrel [Plavix] 75 mg PO DAILY 11/16/16 11/29/16 History Acetaminophen Tab [Tylenol Tab] 325 mg PO Q4H PRN #0 tablet 11/23/16 11/29/16 Rx Albuterol/Ipratropium Neb [Duoneb] 3 ml RESP TX RT Q6H PRN #0 11/23/16 Rx Chlorhexidine 4% Soln [Hibiclens] 1 applic TOP DAILY #7 applic 11/23/16 Rx Collagenase Oint [Santyl Oint] 1 applic TOP DAILY applic 11/23/16 11/29/16 Rx Levothyroxine Tab [Synthroid Tab] 125 mcg PO DAILY@0700 #30 tablet 11/23/16 Rx Nystatin Powder [Mycostatin Powder] 1 applic TOP DAILY #7 applic 11/23/16 Rx Skin Healing Oint (Aquaphor) 1 applic TOP DAILY #7 applic 11/23/16 11/29/16 Rx [Aquaphor] Terbinafine Tab [LamISIL Tab] 250 mg PO DAILY #14 tablet 11/23/16 11/29/16 Rx Review of System - Review of System 12 point system: reviewed and no additional remarkable complaints except as stated - Review of System Constitutional: Absent: chills, fever, weakness Eyes: Absent: vision change Head/Ears/Nose/Throat: Absent: nasal drainage Respiratory: Absent: cough, wheezing Cardiovascular: Absent: chest pain, dyspnea on exertion Gastrointestinal: Absent: abdominal pain, nausea, vomiting Genitourinary male: Absent: dysuria Musculoskeletal: Absent: arm pain, back pain, leg pain, neck pain Skin: Absent: rash Neurological: Present: confusion, other (shaky; trembles ). Absent: headache, weakness, numbness, vertigo Psychiatric: Absent: anxiety, depression Endocrine: Absent: fatigue Hematological/Lymphatic: Absent: easy bleeding Allergic/Immunologic: Absent: facial swelling Medical,Surgical,& Family Hx - Medical History Cardio: History of: CHF, CAD (50% LAD lesion) No history of: Hypertension Neurology: History of: Cerebrovascular Accident (had 10 years) No history of: Seizures HEENT: History of: Eye Problem (Glasses) Endocrine: History of: Thyroid Disorder Respiratory: History of: COPD Genitourinary: History of: Prostate Problems (prostate cancer) Gastrointestinal: History of: GERD, GI Problems (Chronic diarrhea about 8 years) No history of: Clostridium Difficile Musculoskeletal: History of: Back/Neck Problems (Back pain, chronic. Treated at pain clinic. Neck injury 3 crushed vertebrae), Musculoskeletal Problems Hematology: No history of: Blood Transfusion Reaction Other: History of: Cancer (Prostate) No history of: Anesthesia Reactions - Surgical History Cardiac Surgeries: Patient Denies: Cardiac Catheterization Neurologic Surgeries: Patient denies: Neurologic Surgery Abdominal Surgeries: Surgical HX of: Abdominal Surgery, Cholecystectomy Reproductive Surgeries: Surgical HX of;: Cystoscopy Orthopedic Surgeries: Surgical HX of;: Orthopedic Surgery (wrist surgery, hip surgery, neck sugery and back surgery) - Family History Family History: Reports;: Family Cancer (Skin (Uncle)), Family Diabetes (Mother) , Family Heart Disease (Uncle, Grandfather:Father ([place])), Family Hypertension ( Mother) - Social History Smoking Status: Former smoker Frequency of Alcohol Use: Frequently Type of Drug Use: None Exam Vital Signs: Vital Signs Temperature 96.2 F L 11/29/16 10:01 Pulse Rate 72 11/29/16 12:00 Respiratory Rate 21 11/29/16 11:25 Blood Pressure 89/31 11/29/16 12:00 O2 Sat by Pulse Oximetry 100 11/29/16 12:00 - General General appearance: alert, in no apparent distress, other (dishelved ) - Head Head exam: Present: atraumatic, normocephalic, normal inspection - Eye Eye exam: Present: normal appearance, PERRL, EOMI - ENT ENT exam: Present: normal exam, normal oropharynx, mucous membranes moist, TM's normal bilaterally, normal external ear exam - Neck Neck exam: Present: normal inspection, full ROM, trachea midline. Absent: tenderness - Chest Chest inspection: Present: normal inspection, symmetric chest wall rise. Absent : tenderness - Respiratory Respiratory exam: Present: rales (bibasalar ), rhonchi (bilaterally ). Absent: normal lung sounds bilaterally, wheezes - Cardiovascular Cardiovascular exam: Present: regular rate, normal rhythm, normal heart sounds - Abdominal Exam Abdominal exam: Present: soft, distention (with fullness to the suprapubic region), normal bowel sounds. Absent: tenderness - Extremities Exam Extremities exam: Present: full ROM, normal capillary refill, pedal edema ( compression dressing applied with edemea; possible nonhealing wounds beneath dressing ). Absent: normal inspection, tenderness, calf tenderness - Back Exam Back exam: Present: normal inspection, full ROM. Absent: tenderness - Neurological Exam Neurological exam: Present: alert, oriented X3, CN II-XII intact, normal gait, reflexes normal - Psychiatric Psychiatric exam: Present: normal affect, normal mood - Skin Skin exam: Present: warm, dry, intact, normal color. Absent: rash, diaphoresis Course - Consultations Consultation #1: Hospitalist will admit patient Time: 11:55 Results - Labs CBC & BMP: 11/29/16 10:54 11/29/16 10:54 Lab Results: I have reviewed the patients labs Labs: Laboratory Tests 11/29/16 11/29/16 11/29/16 10:54 10:54 10:54 WBC 11.6 RBC 3.38 L Hgb 10.1 L Hct 31.0 L MCV 91.7 MCH 30 MCHC 32.6 RDW 15.6 Plt Count 289 MPV 10.1 Neut % (Auto) 78.0 H Lymph % (Auto) 8.8 L [place] % (Auto) 5.5 Eos % (Auto) 6.7 Baso % (Auto) 0.5 Neut # (Auto) 9.1 H Lymph # (Auto) 1.0 L [place] # (Auto) 0.6 Eos # (Auto) 0.8 Baso # (Auto) 0.1 Immature Gran % 0.5 Nucleated RBC % 0.0 Immature Gran # 0.06 Nucleated RBCs # 0.00 INR 2.5 PT Patient/Control Mix 28.3 D Circ Anticoag PTT 53.1 H Urine Color Yellow Urine Appearance Clear Urine pH 5.0 Ur Specific [place] 1.006 Urine Protein Negative Urine Glucose (UA) Negative Urine Ketones Negative Urine Blood Moderate Urine Nitrate Negative Urine Bilirubin Negative Urine Urobilinogen < 2.0 H Urine Leukocytes Negative Ur Culture Indicated? Ordered separately - Diagnostic Findings Procedure: Chest x-ray: report reviewed by me (stable platelike scar or subsegmental atelectasis left lower lung. Otherwise unchanged. ) Disposition Clinical Impression: Dystonia, Lower extremity edema, Failure to thrive, Mental status change, COPD (chronic obstructive pulmonary disease), Venous stasis ulcers of both lower extremities, Coarse tremors, Hypotension Case discussed with: patient Disposition: Still a Patient Condition: Guarded Time of Disposition: 11:56
[2016-11-29 11:19] LABS: INR 2.5
[2016-11-29 11:26] LABS: Apearance,Urine CLEAR (Clear); Bilirubin,Urine Negative (Negative); Blood, Urine Moderate mg/dL (Negative); Glucose,Urine (UA) Negative (Negative); Ketones,Urine Negative (Negative); Nitrite,Urine Negative (Negative); Protein,Urine Negative; Urine Color Yellow (Yellow); Urine Specific Gravity 1.006 (1.001-1.035); Urine Urobilinogen < 2.0 EU/DL (0.2-1.0)
[2016-11-29 11:28] LABS: PT Patient Result 28.3 SECS; Partial Thromboplastin Time 53.1 SECS (0-40)
--- NOTE | 2016-11-29 11:30 | CT Report ---
Referring physician: Ruiz Dorman Exam: CT brain without contrast Date: 11/29/2016 Comparison: 11/15/2016 Reason: Alteration of consciousness Technique: Axial images of the head were obtained without the use of contrast. Total DLP was 997.90 mGy*cm. Findings: The ventricles are borderline size with no midline displacement. There is no evidence of an acute infarction, recent intracranial hemorrhage or abnormal mass effect. Persistent atrophy and diffuse cerebral hypodensities. Arterial calcifications are noted. The osseous structures appear intact. The mastoid air cells are clear. Minimal mucosal thickening/fluid in the visualized paranasal sinuses with possible chronic fracture of the medial wall of the left orbit. Impression: No acute intracranial abnormality is identified. Persistent atrophy and microvascular disease. The CT exam was performed using one or more of the following dose reduction techniques: Automated exposure control and adjustment of the mA and/or kV according to patient size. PROCEDURE INTERPRETED AT [facility] DEPARTMENT OF RADIOLOGY Final Report Signed by: Dr. Jaylyn Mohan
[2016-11-29 11:47] LABS: Albumin 2.4 G/DL (3.4-5.0); Bilirubin,Total 0.6 MG/DL (0.2-1.0); Calcium 7.9 MG/DL (8.5-10.1); Magnesium 1.8 MG/DL (1.8-2.4); Osmolality,Calculated 281.3 MOS/KG (273-304); Potassium 4.2 MMOL/L (3.5-5.1); Total Protein 6.3 G/DL (6.4-8.3); Troponin I Only 0.032 NG/ML (0.00-0.045)
--- NOTE | 2016-11-29 12:36 | Hospitalist History & Physical ---
Assessment and Plan (1) Hypotension Status: Acute Assessment and plan: Hypotension noted at the time of arrival; moderate improvement noted since arrival; will continue to monitor. Current Visit: Yes (2) Mental status change Status: Acute Assessment and plan: At the time of presentation, the patient had episodes of intermittent confusion. CT scan (-); this may be attributed to underlying medication use at home. we will monitor. Current Visit: Yes Qualifiers: Altered mental status type: unspecified Qualified Code(s): R41.82 - Altered mental status, unspecified (3) Venous stasis ulcers of both lower extremities Status: Acute Assessment and plan: Recent surgery to bilateral lower legs per Dr. Mills; will consult to assess. Current Visit: Yes (4) COPD (chronic obstructive pulmonary disease) Status: Chronic Assessment and plan: No acute exacerbation noted at time of admission; will monitor and manage as needed. Current Visit: Yes (5) Acute kidney injury Status: Acute Assessment and plan: BUN/Creatinine at 15/2.80; this may be largely related to overuse of diuretics; we will monitor. Current Visit: No (6) Dystonia Status: Acute Assessment and plan: Intermittant hand jerking noted at the time of encounter; this may be attributed to polypharmacology. We will review medications in an attempt to identify a caustive factor. We will obtain thyroid panel and review. Current Visit: Yes History of Present Illness Chief complaint: hand jerking and altered mental status. History of present illness: This is a very pleasantly confused 76 year old male that presented to the ED at [facility] this morning per EMS for evaluation oThe patient has a very extensive medical history of coronary artery disease, congestive heart failure, chronic lower back and neck pain, hypothyroidism, congestive heart failure, and carcinoma of the prostate.Apparently, the patient started experiencing the above complaints over a week ago that gradually worsened over time. His is present at bedside. She initially thought that the patient was short of breath by his gestures. She became alarmed and called EMS for emergency assistance. He was given Lasix by EMS in the field and transported to the ED for evaluation. At the time of presentation, the patient was altered; however adamantly denied being short of breath. Labs were obtained which revealed renal insufficiency with a BUN at 15 and Creatinine at 2.15. CT Head was essentially negative for any acute intracrainal processes or infarct. Chest radiograph revealed stable platelike scar or subsegmental atelectasis left lower lung. After brief discussion with both Dr. Dorman and Dr. Erwin, the patient will be admitted under the hospitalist service for continuation of care. Home Medications Medication Instructions Recorded Confirmed Type Baclofen Tab [Lioresal] 10 mg PO DAILY 10/24/14 11/29/16 History Furosemide Tab [Lasix Tab] 80 mg PO BID 10/24/14 11/29/16 History Pantoprazole Tab [Protonix Tab] 40 mg PO DAILY 10/24/14 11/29/16 History Potassium Chloride Tab [K Dur] 20 meq PO BID 10/24/14 11/29/16 History Pregabalin [Lyrica] 75 mg PO BID 04/17/16 11/29/16 History Umeclidinium Brm/Vilanterol Tr 1 puff INH DAILY 04/17/16 11/29/16 History [Anoro Ellipta] fentaNYL 100 MCG/HR PATCH 1 patch TRANSDERM Q3DAY #5 patch 05/06/16 11/29/16 Rx [Duragesic 100 Patch] Albuterol Sulfate [Ventolin HFA] 2 puff INH Q4H PRN 07/08/16 11/29/16 History Diphenoxylate/Atrop 2.5-0.025 2 each PO Q6H PRN 07/08/16 11/29/16 History [Lomotil Tab] Temazepam 30 mg PO BEDTIME PRN 07/08/16 11/29/16 History metOLazone [Metolazone] 5 mg PO BID 07/08/16 11/29/16 History Clopidogrel [Plavix] 75 mg PO DAILY 11/16/16 11/29/16 History Acetaminophen Tab [Tylenol Tab] 325 mg PO Q4H PRN #0 tablet 11/23/16 11/29/16 Rx Albuterol/Ipratropium Neb [Duoneb] 3 ml RESP TX RT Q6H PRN #0 11/23/16 Rx Chlorhexidine 4% Soln [Hibiclens] 1 applic TOP DAILY #7 applic 11/23/16 Rx Collagenase Oint [Santyl Oint] 1 applic TOP DAILY applic 11/23/16 11/29/16 Rx Levothyroxine Tab [Synthroid Tab] 125 mcg PO DAILY@0700 #30 tablet 11/23/16 Rx Nystatin Powder [Mycostatin Powder] 1 applic TOP DAILY #7 applic 11/23/16 Rx Skin Healing Oint (Aquaphor) 1 applic TOP DAILY #7 applic 11/23/16 11/29/16 Rx [Aquaphor] Terbinafine Tab [LamISIL Tab] 250 mg PO DAILY #14 tablet 11/23/16 11/29/16 Rx Allergies Allergy/AdvReac Type Severity Reaction Status Date / Time No Known Allergies Allergy Verified 10/24/14 12:10 Medical,Surgical,& Family Hx - Medical History Cardio: History of: CHF, CAD (50% LAD lesion) No history of: Hypertension Neurology: History of: Cerebrovascular Accident (had 10 years) No history of: Seizures HEENT: History of: Eye Problem (Glasses) Endocrine: History of: Thyroid Disorder Respiratory: History of: COPD Genitourinary: History of: Prostate Problems (prostate cancer) Gastrointestinal: History of: GERD, GI Problems (Chronic diarrhea about 8 years) No history of: Clostridium Difficile Musculoskeletal: History of: Back/Neck Problems (Back pain, chronic. Treated at pain clinic. Neck injury 3 crushed vertebrae), Musculoskeletal Problems Hematology: No history of: Blood Transfusion Reaction Other: History of: Cancer (Prostate) No history of: Anesthesia Reactions - Surgical History Cardiac Surgeries: Patient Denies: Cardiac Catheterization Neurologic Surgeries: Patient denies: Neurologic Surgery Abdominal Surgeries: Surgical HX of: Abdominal Surgery, Cholecystectomy Reproductive Surgeries: Surgical HX of;: Cystoscopy Orthopedic Surgeries: Surgical HX of;: Orthopedic Surgery (wrist surgery, hip surgery, neck sugery and back surgery) - Family History Family History: Reports;: Family Cancer (Skin (Uncle)), Family Diabetes (Mother) , Family Heart Disease (Uncle, Grandfather:Father ([place])), Family Hypertension ( Mother) - Social History Smoking Status: Former smoker Frequency of Alcohol Use: Frequently Type of Drug Use: None 12 point system: reviewed and no additional remarkable complaints except as stated Exam - Constitutional Vitals: Period Temp Pulse Resp BP Sys/Jones Pulse Ox Last 24 Hr 96.2 F-96.2 F 71-86 19-22 89-146/31-48 92-100 General appearance: mild distress - Head Head exam: Present: normal inspection, normocephalic, atraumatic - Eye Eye exam: Present: EOMI. Absent: conjunctival injection, nystagmus, periorbital swelling Pupils: Present: MIKAL, normal accommodation - ENT ENT exam: Present: normal exam, normal external ear exam, normal oropharynx - Neck Neck exam: Present: normal inspection. Absent: lymphadenopathy, meningismus, tenderness, thyromegaly - Respiratory Respiratory exam: Present: decreased breath sounds, rales, rhonchi - Cardiovascular Cardiovascular exam: Absent: carotid bruit, diastolic murmur, gallop, JVD, rubs , systolic murmur - GI/Abdominal GI/Abdominal exam: Present: normal bowel sounds, firm, soft - Extremities Exam Extremities exam: Present: other (chronic venous stasis ulcers bilaterally) - Back Exam Back exam: Present: normal inspection - Neurological Exam Neurological exam: Present: oriented X3, other (episodes of intermittent confusion noted at times) - Psychiatric Psychiatric exam: Present: normal affect, normal mood - Skin Skin exam: Present: normal color, warm, dry Results - Labs CBC & BMP: 11/29/16 10:54 11/29/16 10:54 Lab Results: I have reviewed the past 24 hour labs
[2016-11-29 15:16] LABS: Magnesium 1.8 MG/DL (1.8-2.4); Phosphorous 4.2 MG/DL (2.5-4.9)
[2016-11-29 15:25] LABS: Risk Ratio 3.2; VLDL CHOLESTEROL 20.8 MG/DL
[2016-11-29] MEDS ORDERED: CHLORHEXIDINE 4% SOLN 118 ML BOTTLE TOP ONE (15:31)
--- NOTE | 2016-11-29 15:35 | General Surgery Consult Note ---
Assessment and Plan - Time spent with patient Time spent with patient: Less than 30 minutes (1) Chronic venous stasis dermatitis of both lower extremities Status: Acute Assessment and plan: Impression: 1. Chronic venous stasis disease of both lower extremities with blistering ulcerations and dermatitis. 2. Blistering of the right lower extremity secondary to chronic venous stasis disease. 3. Blistering and superficial ulceration of the left lower extremity and foot secondary chronic venous stasis disease. Plan: We will start compressive therapy again and as well as good daily wound care to try to clean these particular areas. Once the edema is out of this area will look at her on getting back and is fair wraps see if we can maintain this process and keep things under good shape. Current Visit: Yes History of Present Illness Chief complaint: Swelling with superficial ulcerations of the lower extremities History of present illness: Mr. Lu is a 76 year old male white who was in the hospital last week having 2 ulcers on the posterior aspect of his left leg and one on his second toe of the left foot. The right lower extremity was looking in real good shape with no evidence of any tissue breakdown at this time. We managed to get these wounds under good control and get them healing and getting him into a [place] wrap. He went home with home health to help manage his care. brought him back today because he was looking worse more lethargic and edematous and swollen with elevated blood pressure. We are asked to see him again for his wounds. To my surprise his legs look worse and when he left here there is a good bit of ecchymotic changes on both lower extremities with some old blistering and no blood on the anterior part of the tibia on the right which was not there at all before. The ulcers of the left foot have completely healed but now there is blistering with superficial skin loss along the lateral aspect of the midportion of the leg and there is some skin changes along the lateral foot and around the toes at this time. We will start some more wound care and try to get things under control again seen if we can get the edema down and get things protective here and see if we can restore the healing the legs that he had. Home Medications Medication Instructions Recorded Confirmed Type Baclofen Tab [Lioresal] 10 mg PO DAILY 10/24/14 11/29/16 History Furosemide Tab [Lasix Tab] 80 mg PO BID 10/24/14 11/29/16 History Pantoprazole Tab [Protonix Tab] 40 mg PO DAILY 10/24/14 11/29/16 History Pregabalin [Lyrica] 75 mg PO BID 04/17/16 11/29/16 History Umeclidinium Brm/Vilanterol Tr 1 puff INH DAILY 04/17/16 11/29/16 History [Anoro Ellipta] fentaNYL 100 MCG/HR PATCH 1 patch TRANSDERM Q3DAY #5 patch 05/06/16 11/29/16 Rx [Duragesic 100 Patch] Albuterol Sulfate [Ventolin HFA] 2 puff INH Q4H PRN 07/08/16 11/29/16 History Diphenoxylate/Atrop 2.5-0.025 2 each PO Q6H PRN 07/08/16 11/29/16 History [Lomotil Tab] Temazepam 30 mg PO BEDTIME PRN 07/08/16 11/29/16 History metOLazone [Metolazone] 5 mg PO BID 07/08/16 11/29/16 History Clopidogrel [Plavix] 75 mg PO DAILY 11/16/16 11/29/16 History Acetaminophen Tab [Tylenol Tab] 325 mg PO Q4H PRN #0 tablet 11/23/16 11/29/16 Rx Albuterol/Ipratropium Neb [Duoneb] 3 ml RESP TX RT Q6H PRN #0 11/23/16 Rx Chlorhexidine 4% Soln [Hibiclens] 1 applic TOP DAILY #7 applic 11/23/16 Rx Collagenase Oint [Santyl Oint] 1 applic TOP DAILY applic 11/23/16 11/29/16 Rx Levothyroxine Tab [Synthroid Tab] 125 mcg PO DAILY@0700 #30 tablet 11/23/16 Rx Nystatin Powder [Mycostatin Powder] 1 applic TOP DAILY #7 applic 11/23/16 Rx Skin Healing Oint (Aquaphor) 1 applic TOP DAILY #7 applic 11/23/16 11/29/16 Rx [Aquaphor] Terbinafine Tab [LamISIL Tab] 250 mg PO DAILY #14 tablet 11/23/16 11/29/16 Rx Cilostazol [Pletal] 100 mg PO BID 11/29/16 11/29/16 History Lovastatin 40 mg PO BEDTIME 11/29/16 11/29/16 History Allergies Allergy/AdvReac Type Severity Reaction Status Date / Time No Known Allergies Allergy Verified 10/24/14 12:10 Medical,Surgical,& Family Hx - Medical History Cardio: History of: CHF, CAD (50% LAD lesion) No history of: Hypertension Neurology: History of: Cerebrovascular Accident (had 10 years) No history of: Seizures HEENT: History of: Eye Problem (Glasses) Endocrine: History of: Thyroid Disorder Respiratory: History of: COPD Genitourinary: History of: Prostate Problems (prostate cancer) Gastrointestinal: History of: GERD, GI Problems (Chronic diarrhea about 8 years) No history of: Clostridium Difficile Musculoskeletal: History of: Back/Neck Problems (Back pain, chronic. Treated at pain clinic. Neck injury 3 crushed vertebrae), Musculoskeletal Problems Hematology: No history of: Blood Transfusion Reaction Other: History of: Cancer (Prostate) No history of: Anesthesia Reactions - Surgical History Cardiac Surgeries: Patient Denies: Cardiac Catheterization Thoracic Surgeries: Patient denies;: Organ Transplant Neurologic Surgeries: Patient denies: Neurologic Surgery Abdominal Surgeries: Surgical HX of: Abdominal Surgery, Cholecystectomy Reproductive Surgeries: Surgical HX of;: Cystoscopy Orthopedic Surgeries: Surgical HX of;: Orthopedic Surgery (wrist surgery, hip surgery, neck sugery and back surgery) - Family History Family History: Reports;: Family Cancer (Skin (Uncle)), Family Diabetes (Mother) , Family Heart Disease (Uncle, Grandfather:Father ([place])), Family Hypertension ( Mother) - Social History Smoking Status: Former smoker Frequency of Alcohol Use: Frequently Type of Drug Use: None Exam - Constitutional Vitals: Period Temp Pulse Resp BP Sys/Jones Pulse Ox Last 24 Hr 97.3 F 69-78 14-16 92-114/37-53 99-100 General appearance: mild distress - Head Head exam: Present: normal inspection - ENT ENT exam: Present: normal exam - Neck Neck exam: Present: normal inspection - Respiratory Respiratory exam: Present: rales - Cardiovascular Cardiovascular exam: Present: RRR - GI/Abdominal GI/Abdominal exam: Present: hypoactive bowel sounds, soft - Extremities Exam Extremities exam: Present: other (There is increased swelling both lower extremities left greater than the right. There is a dark ecchymotic changes scattered throughout both lower extremities. There is a blistered area on the anterior tibial area of the right leg. There is a blistered area with loss of skin on the lateral aspect of the left leg with some skin changes around the base of the toes and the lateral aspect of the left foot. Ulcers on the posterior aspect of the calf there with her last week have healed) - Neurological Exam Neurological exam: Present: alert, altered - Skin Skin exam: Present: normal color, warm, dry Results - Labs CBC & BMP: 11/29/16 10:54 11/29/16 10:54 Lab Results: I have reviewed the past 24 hour labs
[2016-11-29] MEDS: SKIN HEALING OINT (AQUAPHOR) 50 GM TUBE TOP PRN (18:16)
[2016-11-29] MEDS: DESITIN 4OZ/NYSTATIN 15 GRAM MIXTURE PASTE TOP SCH (23:00)
[2016-11-30 04:24] LABS: Basophils # 0.1 10*3/uL (0.0-0.2); Basophils % 0.6 % (0.0-0.8); Eosinophils # 0.5 10*3/uL (0.0-0.87); Eosinophils % 6.2 % (0.00-10.9); Hematocrit 29.7 VOL% (42.0-52.0); Hemoglobin 9.6 GM/DL (14.0-18.0); Immature Granulocytes % 0.4 %; Immature Granulocytes Absolute 0.03 #; Lymphocytes # 1.2 10*3/uL (1.4-4.0); Lymphocytes % 13.5 % (21.2-54.2); Mean Corpuscular HGB Conc 32.3 GM/DL (32-36); Mean Corpuscular Hemoglobin 30 PG (27-34); Mean Platelet Volume 10.3 FL (9.6-12.0); Monocytes # 0.6 10*3/uL (0.11-0.8); Monocytes % 7.1 % (1.7-12.7); Neutrophils # 6.2 10*3/uL (1.4-7.4); Neutrophils % 72.2 % (38.7-73.9); Platelet Count 265 T/CUMM (130-400); Red Blood Count 3.23 MC/CUMM (3.8-5.5); Red Cell Distribution Width 15.6 % (9.3-17.3); White Blood Count 8.6 T/CUMM (4-12)
[2016-11-30 05:35] LABS: Bilirubin,Total 0.5 MG/DL (0.2-1.0); Calcium 7.9 MG/DL (8.5-10.1); Magnesium 1.7 MG/DL (1.8-2.4); Osmolality,Calculated 283.1 MOS/KG (273-304); Phosphorous 3.7 MG/DL (2.5-4.9); Potassium 4.2 MMOL/L (3.5-5.1); Total Protein 5.5 G/DL (6.4-8.3)
--- NOTE | 2016-11-30 08:24 | XRay Report ---
XR chest 1V portable Indication: COPD Comparison: Chest x-ray 11/29/2016 Technique: Portable AP chest was performed. Findings: Limited inspiration is present. Parenchymal scarring and/or discoid atelectasis left lung has probably changed little since comparison. Heart size is stable. Bony structures and soft tissues appear stable. Impression: 1. No adverse interval change in the chest. 11/30/2016 8:21 AM PROCEDURE INTERPRETED AT [facility] DEPARTMENT OF RADIOLOGY Final Report Signed by: Dr. Gregorio Moe
[2016-11-30] MEDS ORDERED: ALBUTEROL/IPRATROPIUM 3 ML NEB RESP TX PRN (08:50)
[2016-11-30] MEDS ORDERED: TEMAZEPAM 15 MG CAPSULE PO PRN (08:50)
[2016-11-30] MEDS ORDERED: NON-FORMULARY MEDICATION (Umeclidinium Brm/Vilanterol Tr [Anoro Ellipta] 1 PUFF) INH SCH (09:00)
[2016-11-30] MEDS ORDERED: fentaNYL 100 MCG/HR PATCH TRANSDERM SCH (09:00)
[2016-11-30] MEDS ORDERED: BACLOFEN 10 MG TABLET PO SCH (09:00)
[2016-11-30] MEDS ORDERED: NYSTATIN POWDER 15 GM BOTTLE TOP SCH (09:00)
[2016-11-30] MEDS ORDERED: CILOSTAZOL 100 MG TABLET PO SCH (09:00)
[2016-11-30] MEDS ORDERED: PREGABALIN 75 MG CAPSULE PO SCH (09:00)
[2016-11-30] MEDS ORDERED: COLLAGENASE OINT 30 GM TUBE TOP SCH (09:00)
[2016-11-30] MEDS ORDERED: TERBINAFINE 250 MG TABLET PO SCH (09:00)
[2016-11-30] MEDS ORDERED: CLOPIDOGREL 75 MG TABLET PO SCH (09:00)
--- NOTE | 2016-11-30 10:07 | Ultrasound Report ---
US carotid duplex BI Indication: Confusion. Comparison: None. Technique: Using transcutaneous probe, routine carotid arterial duplex ultrasound performed. Ultrasound images were captured and stored. Estimation of stenosis will be made using indirect NASCET criteria. Ultrasound images were captured and stored. Findings: Grayscale and color Doppler findings: Echogenic foci of mixed calcified plaque are suggested within the right common carotid artery as well as carotid artery bulb. The amount of plaque is somewhat increased within the right carotid artery bulb. Plaque extends into the right cervical segment ICA. Additional echogenic plaque is noted within the left common carotid artery and carotid artery bulb. Peak systolic velocities are as follows (centimeters per second): Right CCA: 131. Right proximal ICA: 180. Right distal ICA: 248. Right ICA/CCA ratio: 1.9. Left CCA: 207. Left proximal ICA: 106. Left distal ICA: 126. Left ICA/CCA ratio: 0.6. External carotid arteries: External carotid arteries are bilaterally patent. Elevated velocities are noted the origin of each external carotid artery. Vertebral arteries: Vertebral arteries bilaterally demonstrate antegrade flow. Impression: 1. Diffuse disease is demonstrated bilaterally throughout the common carotid arteries and carotid artery bulbs as well as several segment ICAs. Velocities found the range of 70% or greater stenosis involving the proximal to mid right cervical segment ICA and 50-69% stenosis distal left ICA, the velocities within the distal left ICA may in part reflect compensatory flow. CTA of the neck is recommended for further characterization. 11/30/2016 9:59 AM PROCEDURE INTERPRETED AT [facility] DEPARTMENT OF RADIOLOGY Final Report Signed by: Dr. Gregorio Moe
--- NOTE | 2016-11-30 13:11 | Magnetic Resonance Report ---
MR head/brain wo con Indication: Confusion. Comparison: CT head 11/29/2016. Technique: Using 1.5 Amaris magnet, multisequence multiplanar MR imaging of the brain was performed without the administration of intravenous contrast. Findings: There is no evidence of restricted diffusion. There is no evidence of acute intracranial hemorrhage, mass, or infarction. Ventricular system demonstrates no evidence of acute pathology. White matter of the cerebral hemispheres demonstrates no significant abnormality. The basal cisterns appear patent. The arterial flow voids appear intact. Left vertebral artery is dominant. The posterior fossa as well as cerebellum demonstrate no evidence of acute pathology. The orbits and globes demonstrate no evidence of acute pathology. The paranasal sinuses and mastoid air cells demonstrate no evidence of significant mucoperiosteal thickening. The calvarium as well as the soft tissues overlying the calvarium demonstrate no evidence of acute pathology. Impression: 1. There is no evidence of acute intracranial pathology. Generalized atrophy is present. 11/30/2016 1:07 PM PROCEDURE INTERPRETED AT [facility] DEPARTMENT OF RADIOLOGY Final Report Signed by: Dr. Gregorio Moe
[2016-11-30] MEDS: SKIN HEALING OINT (AQUAPHOR) 50 GM TUBE TOP PRN (14:19)
[2016-11-30] MEDS: DESITIN 4OZ/NYSTATIN 15 GRAM MIXTURE PASTE TOP SCH (14:19)
--- NOTE | 2016-11-30 15:15 | Discharge Summary ---
Hospital Course - Hospital Course Hospital Course: Mr. Lu was admitted for evaluation of altered mental status and shortness of breath. By the time of my interview the patient was at baseline, alert and oriented 3. He had an MRI of his brain, carotid ultrasound and echocardiogram. The echocardiogram is pending at discharge however the MRI of his brain was unremarkable and carotid ultrasound revealed bilateral hemo- dynamic stenosis with greater than 70% on the right and 50-69% on the left. This was addressed with Dr. Evans and the patient will follow-up in Dr. Evans's office in 1 week. No changes to his medication regimen. By discharge he had met maximum benefit of hospitalization. I spent 38 minutes coordinating this discharge. - Time spent with patient Time with patient DS: Greater than 30 minutes Discharge Plan - Discharge Data Disposition: Disch To Home/Self Care Condition at Discharge: Stable Discharge Diet: advance to your usual diet - Discharge Medications Continue Pantoprazole Tab [Protonix Tab] 40 mg PO DAILY Baclofen Tab [Lioresal] 10 mg PO DAILY Furosemide Tab [Lasix Tab] 80 mg PO BID Umeclidinium Brm/Vilanterol Tr [Anoro Ellipta] 1 puff INH DAILY Pregabalin [Lyrica] 75 mg PO BID fentaNYL 100 MCG/HR PATCH [Duragesic 100 Patch] 1 patch TRANSDERM Q3DAY #5 patch Temazepam 30 mg PO BEDTIME PRN PRN Reason: Pain metOLazone [Metolazone] 5 mg PO BID Albuterol Sulfate [Ventolin HFA] 2 puff INH Q4H PRN PRN Reason: Shortness Of Breath/Wheezing Acetaminophen Tab [Tylenol Tab] 325 mg PO Q4H PRN #0 tablet PRN Reason: fever, headache/body aches Albuterol/Ipratropium Neb [Duoneb] 3 ml RESP TX RT Q6H PRN #0 PRN Reason: Shortness Of Breath/Wheezing Chlorhexidine 4% Soln [Hibiclens] 1 applic TOP DAILY #7 applic Collagenase Oint [Santyl Oint] 1 applic TOP DAILY applic Nystatin Powder [Mycostatin Powder] 1 applic TOP DAILY #7 applic Skin Healing Oint (Aquaphor) [Aquaphor] 1 applic TOP DAILY #7 applic Terbinafine Tab [LamISIL Tab] 250 mg PO DAILY #14 tablet Lovastatin 40 mg PO BEDTIME Cilostazol [Pletal] 100 mg PO BID Diphenoxylate/Atrop 2.5-0.025 [Lomotil Tab] 2 each PO Q6H PRN PRN Reason: Diarrhea Clopidogrel [Plavix] 75 mg PO DAILY Levothyroxine Tab [Synthroid Tab] 125 mcg PO DAILY@0700 #30 tablet - Follow Up or Referral - Forms/Instructions Exam - Constitutional Vitals: Period Temp Pulse Resp BP Sys/Jones Pulse Ox Last 24 Hr 96.3 F-98.7 F 73-86 18-22 119-145/54-76 91-98 General appearance: normal weight, no acute distress - Head Head exam: Present: normal inspection, normocephalic, atraumatic - Eye Eye exam: Present: EOMI Pupils: Present: MIKAL - ENT ENT exam: Present: normal exam - Neck Neck exam: Present: normal inspection - Respiratory Respiratory exam: Present: clear to auscultation bilaterally. Absent: accessory muscle use, prolonged expiratory phase, wheezes - Cardiovascular Cardiovascular exam: Present: regular rate and rhythm. Absent: bradycardia, irregular rhythm, systolic murmur - GI/Abdominal GI/Abdominal exam: Present: normal bowel sounds. Absent: ascites, hypoactive bowel sounds, tenderness - Extremities Exam Extremities exam: Present: edema Discharge Results Procedures and tests throughout hospitalization: Pending Orders 11/29/16 14:23 Thyroid Function [place], S Stat Labs on day of discharge: Labs from last 24 hours 11/30/16 11/30/16 11/29/16 03:59 03:59 14:23 WBC 8.6 RBC 3.23 L Hgb 9.6 L Hct 29.7 L MCV 92.0 MCH 30 MCHC 32.3 RDW 15.6 Plt Count 265 MPV 10.3 Neut % (Auto) 72.2 Lymph % (Auto) 13.5 L [place] % (Auto) 7.1 Eos % (Auto) 6.2 Baso % (Auto) 0.6 Neut # (Auto) 6.2 Lymph # (Auto) 1.2 L [place] # (Auto) 0.6 Eos # (Auto) 0.5 Baso # (Auto) 0.1 Immature Gran % 0.4 Nucleated RBC % 0.0 Immature Gran # 0.03 Nucleated RBCs # 0.00 Sodium 142 Potassium 4.2 Chloride 106 Carbon Dioxide 27 Anion Gap 13.2 BUN 14 Creatinine 2.40 H GFR Calculation 33 BUN/Creatinine Ratio 5.00 L Glucose 98 Calculated Osmolality 283.1 Calcium 7.9 L Phosphorus 3.7 4.2 Magnesium 1.7 L 1.8 Total Bilirubin 0.50 AST 19 ALT 9 L Alkaline Phosphatase 130 H Total Protein 5.5 L Albumin 2.0 L Globulin 3.5 Albumin/Globulin Ratio 0.5 L Triglycerides Cholesterol LDL Cholesterol VLDL Cholesterol HDL Cholesterol Heart Disease Risk Ratio 11/29/16 14:23 WBC RBC Hgb Hct MCV MCH MCHC RDW Plt Count MPV Neut % (Auto) Lymph % (Auto) Gladwin % (Auto) Eos % (Auto) Baso % (Auto) Neut # (Auto) Lymph # (Auto) [place] # (Auto) Eos # (Auto) Baso # (Auto) Immature Gran % Nucleated RBC % Immature Gran # Nucleated RBCs # Sodium Potassium Chloride Carbon Dioxide Anion Gap BUN Creatinine GFR Calculation BUN/Creatinine Ratio Glucose Calculated Osmolality Calcium Phosphorus Magnesium Total Bilirubin AST ALT Alkaline Phosphatase Total Protein Albumin Globulin Albumin/Globulin Ratio Triglycerides 104 Cholesterol 160 LDL Cholesterol 89.0 VLDL Cholesterol 20.8 HDL Cholesterol 50 Heart Disease Risk Ratio 3.20 DS: Provider Date of admission: 11/29/16 12:26 Primary care physician: . No PCP Attending physician on admission: Flaquita Colby MD Consults: 11/29/16 13:35 Consult to Physician [CONS] Routine Comment: Consulting Provider: Austen Trimble When should Consulting Provider be notified: Now Person Notified: DOMENICA Date Notified: 11/29/16 Time Notified: 13:40 Consult Notification Comment: DR TRIMBLE WAS IN SURGERY...CALLED [employer] CELL PHONE AND DOMENICA ANSWERED AND I TOLD HER ABOUT THE CONSULT....OFFICE CLOSED AT 12 NOON 11/29/16 15:46 Consult to Wound Care - [place] [CONS] Routine Reason for Wound Care: Wound Care Management Consult Comment: Bilateral venous stasis disease with ulceration 11/30/16 08:38 Consult to Case Mgmt/Social Srvs [CONS] Routine Reason for Case Mgmt/Social Srvs: Discharge Planning Consult to Physical Therapy [CONS] Routine Reason for Physical Therapy: Evaluate and Treat 11/30/16 14:09 Consult to Physician [CONS] Routine Comment: diseased carotids Consulting Provider: Mauricio Evans Discharging clinician: Flaquita Colby MD Expected date of discharge: 11/30/16
[2016-11-30 16:40] VITALS: BP 118/53
--- NOTE | 2016-11-30 16:46 | ECHO Report ---
Mauricio Lu Exam Date: 11/30/2016 09:34 Referring Physician: Technologist: Jadyn Lu [facility] Age: 76 Ht (in): 73 Wt (lb): 220 Gender: M Exam Location: [facility] Echo Indications: Hypotension, Mental status changes, COPD, VINH BP: 119 / 61 HR: 79 Rhythm: Sinus Technical Quality: Technically difficult study IMPRESSIONS EF 60-65 % . Grade I/IV diastolic dysfunction (abnormal relaxation filling pattern), normal to mildly elevated filling pressures. Mildly increased right ventricular size. Moderately increased right atrial size. The left atrium is mildly enlarged. No mitral valve regurgitation. Aortic valve sclerosis. No aortic valve regurgitation. Moderate tricuspid valve regurgitation. PAP50 mmHG. Normal pericardium without effusion. Normal ascending aorta dimension. Technically difficult study. MEASUREMENTS (Male / Female) Normal Values 2D ECHO LV Diastolic Diameter PLAX 5.3 cm 4.2 - 5.9 / 3.9 - 5.3 cm LV Systolic Diameter PLAX 2.5 cm LV Fractional Shortening PLAX 52.6 % IVS Diastolic Thickness 1.0 cm 0.6 - 1.0 / 0.6 - 0.9 cm LVPW Diastolic Thickness 1.0 cm 0.6 - 1.0 / 0.6 - 0.9 cm RV Internal Dim ED PLAX 3.2 cm Aortic Root Diameter 4.1 cm LA Systolic Diameter LX 4.3 cm 3.0 - 4.0 / 2.7 - 3.8 cm DOPPLER TR Peak Velocity 314.0 cm/s TR Peak Gradient 39.4 mmHg FINDINGS Left Ventricle EF 60-65 % . Grade I/IV diastolic dysfunction (abnormal relaxation filling pattern), normal to mildly elevated filling pressures. Right Ventricle Mildly increased right ventricular size. Right Atrium Moderately increased right atrial size. Left Atrium The left atrium is mildly enlarged. Mitral Valve Morphologically normal mitral valve. No mitral valve regurgitation. Aortic Valve Aortic valve sclerosis. No aortic valve regurgitation. Tricuspid Valve Morphologically normal tricuspid valve. Moderate tricuspid valve regurgitation. PAP50 mmHG. Pulmonic Valve Morphologically normal pulmonic valve without significant stenosis. There is no pulmonic regurgitation. Pericardium Normal pericardium without effusion. Aorta Normal ascending aorta dimension. Juan Solomon (Electronically Signed) Final Date: 30 Nov 2016 16:45
[2016-11-30] MEDS ORDERED: LOVASTATIN 20 MG TABLET PO SCH (21:00)
[2016-12-01] MEDS ORDERED: LEVOTHYROXINE 125 MCG TABLET PO SCH (07:00)
== END 2016-11-30 19:06 | disposition home health service (06) | DRG 684 ==
LOC: EDUNIT# → N.ED 09:59 → N.EDINP 12:26 → N.2E 12:55
PROVIDERS: ADMIT Internal Medicine; ATTEND Internal Medicine

== ENCOUNTER 2018-02-03 11:05 | Inpatient (IN) ==
[2018-02-03] MEDS ORDERED: SODIUM CHLORIDE 0.9% 1,000 ML IV STA ×2 (11:27→13:04)
[2018-02-03] MEDS ORDERED: ALBUTEROL/IPRATROPIUM 3 ML NEB RESP TX STA (11:27)
[2018-02-03 12:14] LABS: Basophils % 0.3 % (0.0-0.8); Eosinophils # 0.1 10*3/uL (0.0-0.87); Eosinophils % 0.4 % (0.00-10.9); Hematocrit 30.9 VOL% (42.0-52.0); Hemoglobin 10.8 GM/DL (14.0-18.0); Immature Granulocytes % 0.6 %; Immature Granulocytes Absolute 0.08 #; Lymphocytes # 0.4 10*3/uL (1.4-4.0); Lymphocytes % 2.9 % (21.2-54.2); Mean Corpuscular Hemoglobin 34 PG (27-34); Mean Corpuscular Volume 96.9 FL (87-102); Mean Platelet Volume 9.4 FL (9.6-12.0); Monocytes # 1.1 10*3/uL (0.11-0.8); Monocytes % 7.6 % (1.7-12.7); Neutrophils # 12.6 10*3/uL (1.4-7.4); Neutrophils % 88.2 % (38.7-73.9); Platelet Count 249 T/CUMM (130-400); Red Blood Count 3.19 MC/CUMM (3.8-5.5); Red Cell Distribution Width 15.7 % (9.3-17.3); White Blood Count 14.3 T/CUMM (4-12)
[2018-02-03 12:32] LABS: Albumin 1.6 G/DL (3.4-5.0); Bilirubin,Total 0.6 MG/DL (0.2-1.0); Calcium 7.8 MG/DL (8.5-10.1); Osmolality,Calculated 289.5 MOS/KG (273-304); Total Protein 7.1 G/DL (6.4-8.3)
[2018-02-03 12:46] LABS: Band Neutrophils 1 % (0-10); Eosinophils 2 % (0-10); Lymphocytes 3 % (20-55); Segmented Neutrophils 87 % (50-85); Total Cells Counted 100
[2018-02-03 12:47] LABS: Hypochromasia 1+; Ovalocytes Slight; Platelet Estimate Adequate
[2018-02-03 13:18] LABS: Apearance,Urine Slightly Hazy (Clear); Bilirubin,Urine Negative (Negative); Blood, Urine Large mg/dL (Negative); Glucose,Urine (UA) Negative (Negative); Ketones,Urine 25 mg/dL (Negative); Nitrite,Urine Negative (Negative); Protein,Urine 100 MG/DL; RBC,Urine TNTC /HPF (0-4); Urine Color Amber (Yellow); Urine Urobilinogen 0.2 EU/DL (0.2-1.0); WBC,Urine 25-30 /HPF (0-6)
[2018-02-03 13:19] LABS: Bacteria,Urine Few /HPF (Few); Squamous Epithelial Cell,Urine Few /HPF (0-10)
[2018-02-03] MEDS ORDERED: LEVOFLOXACIN INJ 500 MG in PREMIX 1 EACH IV STA (13:21)
[2018-02-03] MEDS ORDERED: BISACODYL 5 MG TABLET PO PRN (14:26)
[2018-02-03] MEDS ORDERED: ACETAMINOPHEN 325 MG TABLET PO PRN ×2 (14:26→14:33)
[2018-02-03] MEDS ORDERED: NITROGLYCERIN SL 0.4 MG TABLET SL PRN (14:33)
[2018-02-03] MEDS ORDERED: ALBUTEROL 2.5 MG/3 ML NEB RESP TX PRN (14:33)
[2018-02-03 15:08] LABS: CKMB % 1.7 %
[2018-02-03] MEDS: SODIUM CHLORIDE 0.9% 1,000 ML IV SCH (15:51)
[2018-02-03] MEDS: cefTRIAXone 1,000 MG in SYRINGE 1 EACH IV SCH (16:17)
[2018-02-03] MEDS: ALBUTEROL/IPRATROPIUM 3 ML NEB RESP TX SCH (19:23)
[2018-02-03] MEDS: PREGABALIN 75 MG CAPSULE PO SCH (22:08)
[2018-02-03] MEDS: ENOXAPARIN 30 MG/0.3 ML SYRINGE SUBCUT SCH (22:08)
[2018-02-03] MEDS: CILOSTAZOL 100 MG TABLET PO SCH (22:08)
[2018-02-04] MEDS: SODIUM CHLORIDE 0.9% 1,000 ML IV SCH ×5 (00:20→17:24)
[2018-02-04] MEDS: cefTRIAXone 1,000 MG in SYRINGE 1 EACH IV SCH ×2 (03:10→15:30)
[2018-02-04] MEDS: LEVOTHYROXINE 125 MCG TABLET PO SCH (06:31)
[2018-02-04 07:11] LABS: Albumin 1.1 G/DL (3.4-5.0); Bilirubin,Total 0.5 MG/DL (0.2-1.0); Calcium 7.4 MG/DL (8.5-10.1); Osmolality,Calculated 295.8 MOS/KG (273-304); Potassium 3.3 MMOL/L (3.5-5.1); Risk Ratio 1.94; Total Protein 5.5 G/DL (6.4-8.3); VLDL CHOLESTEROL 18.8 MG/DL
[2018-02-04] MEDS: ALBUTEROL/IPRATROPIUM 3 ML NEB RESP TX SCH ×4 (07:17→20:25)
[2018-02-04 07:19] LABS: CKMB % 1.4 %
[2018-02-04 08:01] LABS: Basophils % 0.2 % (0.0-0.8); Eosinophils # 0.2 10*3/uL (0.0-0.87); Eosinophils % 1.7 % (0.00-10.9); Hematocrit 23.9 VOL% (42.0-52.0); Immature Granulocytes % 0.9 %; Lymphocytes # 0.5 10*3/uL (1.4-4.0); Lymphocytes % 4.1 % (21.2-54.2); Mean Corpuscular HGB Conc 35.6 GM/DL (32-36); Mean Corpuscular Hemoglobin 35 PG (27-34); Mean Corpuscular Volume 97.6 FL (87-102); Mean Platelet Volume 9.5 FL (9.6-12.0); Monocytes # 0.8 10*3/uL (0.11-0.8); Monocytes % 7.2 % (1.7-12.7); Neutrophils # 9.4 10*3/uL (1.4-7.4); Neutrophils % 85.9 % (38.7-73.9); Red Cell Distribution Width 16.3 % (9.3-17.3); White Blood Count 10.9 T/CUMM (4-12)
[2018-02-04 08:08] LABS: Hemoglobin 8.5 GM/DL (14.0-18.0); Platelet Count 184 T/CUMM (130-400); Red Blood Count 2.45 MC/CUMM (3.8-5.5)
[2018-02-04] MEDS: CILOSTAZOL 100 MG TABLET PO SCH ×2 (08:21→22:16)
[2018-02-04] MEDS: BACLOFEN 10 MG TABLET PO SCH (08:21)
[2018-02-04] MEDS: PANTOPRAZOLE 40 MG TABLET PO SCH (08:22)
[2018-02-04] MEDS: SKIN HEALING OINT (AQUAPHOR) 50 GM TUBE TOP SCH (08:23)
[2018-02-04 08:33] LABS: Band Neutrophils 2 % (0-10); Eosinophils 2 % (0-10); Hypochromasia 1+; Lymphocytes 2 % (20-55); Platelet Estimate Adequate; Segmented Neutrophils 92 % (50-85); Total Cells Counted 100
[2018-02-04] MEDS ORDERED: NON-FORMULARY MEDICATION (Umeclidinium Brm/Vilanterol Tr [Anoro Ellipta] 1 PUFF) INH SCH (09:00)
[2018-02-04] MEDS: TAMSULOSIN 0.4 MG CAPSULE PO SCH (12:49)
[2018-02-04] MEDS: GENTAMICIN 0.1% CREAM 15 GM TUBE TOP SCH (12:59)
[2018-02-04] MEDS: PREGABALIN 75 MG CAPSULE PO SCH (22:16)
[2018-02-04] MEDS: METHOCARBAMOL 750 MG TABLET PO PRN (22:16)
[2018-02-04] MEDS: ENOXAPARIN 30 MG/0.3 ML SYRINGE SUBCUT SCH (22:16)
[2018-02-05] MEDS: SODIUM CHLORIDE 0.9% 1,000 ML IV SCH ×3 (01:53→07:10)
[2018-02-05] MEDS: cefTRIAXone 1,000 MG in SYRINGE 1 EACH IV SCH (04:26)
[2018-02-05 06:16] LABS: Basophils % 0.3 % (0.0-0.8); Eosinophils # 0.2 10*3/uL (0.0-0.87); Eosinophils % 1.6 % (0.00-10.9); Hemoglobin 8.3 GM/DL (14.0-18.0); Immature Granulocytes % 1.1 %; Immature Granulocytes Absolute 0.16 #; Lymphocytes # 0.5 10*3/uL (1.4-4.0); Lymphocytes % 3.6 % (21.2-54.2); Mean Corpuscular HGB Conc 34.6 GM/DL (32-36); Mean Corpuscular Hemoglobin 34 PG (27-34); Mean Corpuscular Volume 98.4 FL (87-102); Mean Platelet Volume 10.1 FL (9.6-12.0); Monocytes # 0.8 10*3/uL (0.11-0.8); Monocytes % 5.3 % (1.7-12.7); Neutrophils % 88.1 % (38.7-73.9); Platelet Count 177 T/CUMM (130-400); Red Blood Count 2.44 MC/CUMM (3.8-5.5); Red Cell Distribution Width 16.2 % (9.3-17.3); White Blood Count 14.8 T/CUMM (4-12)
[2018-02-05 06:33] LABS: Calcium 7.1 MG/DL (8.5-10.1); Osmolality,Calculated 286.7 MOS/KG (273-304); Potassium 3.2 MMOL/L (3.5-5.1)
[2018-02-05 06:37] LABS: CKMB % 1.3 %
[2018-02-05] MEDS: LEVOTHYROXINE 125 MCG TABLET PO SCH (06:47)
[2018-02-05 07:05] LABS: Band Neutrophils 1 % (0-10); Eosinophils 3 % (0-10); Hypochromasia 1+; Lymphocytes 1 % (20-55); Platelet Estimate Normal; Segmented Neutrophils 93 % (50-85); Total Cells Counted 100
[2018-02-05] MEDS: ALBUTEROL/IPRATROPIUM 3 ML NEB RESP TX SCH ×4 (07:20→19:43)
[2018-02-05] MEDS ORDERED: POTASSIUM CHLORIDE 20 MEQ TABLET PO PRN (08:20)
[2018-02-05] MEDS ORDERED: POTASSIUM CHLORIDE 20 MEQ TABLET PO ONE (09:00)
[2018-02-05] MEDS ORDERED: FUROSEMIDE 40 MG/4 ML VIAL IV ONE ×2 (09:00→12:24)
[2018-02-05] MEDS ORDERED: MAGNESIUM SULF RIDER 4 GM in PREMIX 1 EACH IV ONE (09:00)
[2018-02-05] MEDS: TAMSULOSIN 0.4 MG CAPSULE PO SCH (09:33)
[2018-02-05] MEDS: CILOSTAZOL 100 MG TABLET PO SCH ×2 (09:33→21:40)
[2018-02-05] MEDS: BACLOFEN 10 MG TABLET PO SCH (09:33)
[2018-02-05] MEDS: PANTOPRAZOLE 40 MG TABLET PO SCH (09:33)
[2018-02-05] MEDS ORDERED: CALCIUM GLUCONATE 1,000 MG in SODIUM CHLORIDE 0.9% 100 ML IV ONE (10:11)
[2018-02-05] MEDS: SKIN HEALING OINT (AQUAPHOR) 50 GM TUBE TOP SCH (10:55)
[2018-02-05] MEDS: GENTAMICIN 0.1% CREAM 15 GM TUBE TOP SCH (10:55)
[2018-02-05] MEDS ORDERED: TUBERCULIN SKIN TEST 0.1 ML SYRINGE INTRADERM ONE ×2 (11:31→12:30)
[2018-02-05] MEDS ORDERED: NALOXONE 0.4 MG/ML VIAL IV PRN (12:29)
[2018-02-05] MEDS ORDERED: NALOXONE 0.4 MG/ML VIAL ONE (12:29)
[2018-02-05 12:34] LABS: ABG Base Excess -8.8 MMOL/L (-2.5-2.5); ABG HCO3 17.3 MMOL/L (20-26); ABG Oxygen Saturation 99.1 % (95-100); ABG PCO2 35.6 MM HG (35-48); ABG TCO2 16.1 MMOL/L (23-27)
[2018-02-05] MEDS ORDERED: SODIUM BICARBONATE 50 MEQ/50 ML SYRINGE IV ONE ×3 (12:51→13:03)
[2018-02-05] MEDS ORDERED: MEROPENEM 500 MG in SYRINGE 1 EACH IV SCH (13:00)
[2018-02-05 13:29] LABS: CKMB % 1.3 %; Troponin I Only 0.03 NG/ML (0.00-0.045)
[2018-02-05] MEDS ORDERED: NALOXONE 0.4 MG/ML VIAL IV ONE (13:30)
[2018-02-05] MEDS: NOREPINEPHRINE 8 MG in SODIUM CHLORIDE 0.9% 242 ML IV PRN ×2 (14:00→20:37)
[2018-02-05] MEDS ORDERED: SODIUM BICARB INJ 100 MEQ in SODIUM CHLORIDE 0.45% 1,000 ML IV SCH (14:00)
[2018-02-05] MEDS: MEROPENEM 500 MG in SYRINGE 1 EACH IV SCH (14:06)
[2018-02-05] MEDS: POTASSIUM CHLORIDE RIDER 10 MEQ in PREMIX 1 EACH IV PRN ×4 (17:15→23:45)
[2018-02-05] MEDS: FUROSEMIDE 40 MG/4 ML VIAL IV SCH (17:44)
[2018-02-05] MEDS: ENOXAPARIN 30 MG/0.3 ML SYRINGE SUBCUT SCH (20:28)
[2018-02-05] MEDS ORDERED: SODIUM CHLORIDE 0.9% 1,000 ML IV PRN (20:58)
[2018-02-05] MEDS: PREGABALIN 75 MG CAPSULE PO SCH (21:40)
[2018-02-06] MEDS: POTASSIUM CHLORIDE RIDER 10 MEQ in PREMIX 1 EACH IV PRN (00:43)
[2018-02-06] MEDS: MEROPENEM 500 MG in SYRINGE 1 EACH IV SCH ×2 (01:07→15:42)
[2018-02-06] MEDS: NOREPINEPHRINE 8 MG in SODIUM CHLORIDE 0.9% 242 ML IV PRN ×3 (02:28→14:12)
[2018-02-06 04:35] LABS: ABG Base Excess -7.2 MMOL/L (-2.5-2.5); ABG HCO3 18.5 MMOL/L (20-26); ABG Oxygen Saturation 96.4 % (95-100); ABG PCO2 37.9 MM HG (35-48); ABG PO2 86.1 MM HG (80-95); Allen Test Positive; Pt O2 Delivery Device Venturi Mask
[2018-02-06 06:22] LABS: Basophils % 0.2 % (0.0-0.8); Eosinophils # 0.3 10*3/uL (0.0-0.87); Eosinophils % 1.5 % (0.00-10.9); Hematocrit 32.8 VOL% (42.0-52.0); Immature Granulocytes % 1.4 %; Immature Granulocytes Absolute 0.26 #; Lymphocytes # 0.4 10*3/uL (1.4-4.0); Lymphocytes % 2.3 % (21.2-54.2); Mean Corpuscular HGB Conc 34.8 GM/DL (32-36); Mean Corpuscular Hemoglobin 33 PG (27-34); Mean Platelet Volume 9.8 FL (9.6-12.0); Monocytes % 5.5 % (1.7-12.7); Neutrophils # 16.8 10*3/uL (1.4-7.4); Neutrophils % 89.1 % (38.7-73.9); Platelet Count 207 T/CUMM (130-400); Red Blood Count 3.49 MC/CUMM (3.8-5.5); Red Cell Distribution Width 17.1 % (9.3-17.3); White Blood Count 18.8 T/CUMM (4-12)
[2018-02-06 06:28] LABS: Hemoglobin 11.4 GM/DL (14.0-18.0)
[2018-02-06 06:40] LABS: Albumin 1.2 G/DL (3.4-5.0); Bilirubin,Total 0.9 MG/DL (0.2-1.0); Calcium 8.1 MG/DL (8.5-10.1); Total Protein 6.5 G/DL (6.4-8.3)
[2018-02-06 06:51] LABS: Anisocytosis 1+; Band Neutrophils 6 % (0-10); Eosinophils 1 % (0-10); Lymphocytes 3 % (20-55); Macrocytosis 1+; Platelet Estimate Normal; Poikilocytosis 1+; Segmented Neutrophils 85 % (50-85); Total Cells Counted 100
[2018-02-06] MEDS: LEVOTHYROXINE 125 MCG TABLET PO SCH (06:55)
[2018-02-06] MEDS: ALBUTEROL/IPRATROPIUM 3 ML NEB RESP TX SCH ×4 (07:24→19:16)
[2018-02-06] MEDS: FUROSEMIDE 40 MG/4 ML VIAL IV SCH ×2 (08:13→16:00)
[2018-02-06] MEDS: GENTAMICIN 0.1% CREAM 15 GM TUBE TOP SCH (11:32)
[2018-02-06] MEDS: SKIN HEALING OINT (AQUAPHOR) 50 GM TUBE TOP SCH (11:45)
[2018-02-06] MEDS: TAMSULOSIN 0.4 MG CAPSULE PO SCH (12:21)
[2018-02-06] MEDS: CILOSTAZOL 100 MG TABLET PO SCH ×2 (12:21→21:18)
[2018-02-06] MEDS: PANTOPRAZOLE 40 MG TABLET PO SCH (12:21)
[2018-02-06] MEDS: HYDROCORTISONE 100 MG VIAL IV SCH ×2 (12:22→23:54)
[2018-02-06] MEDS: ALBUMIN 25% 25 GM in PREMIX 1 EACH IV SCH ×2 (12:22→20:09)
[2018-02-06] MEDS ORDERED: FAT EMULSION 20% 250 ML IV SCH (14:00)
[2018-02-06] MEDS ORDERED: MULTIVITAMIN INJ 10 ML, TRACE ELEMENTS (5) 1 ML in AMINO ACIDS/DEXT/LYTES 4.25-5% 2,000 ML IV SCH (17:00)
[2018-02-06] MEDS ORDERED: DEXTROSE 10% 1,000 ML IV PRN (17:00)
[2018-02-06] MEDS: ENOXAPARIN 30 MG/0.3 ML SYRINGE SUBCUT SCH (21:17)
[2018-02-06] MEDS: PREGABALIN 75 MG CAPSULE PO SCH (21:18)
[2018-02-07] MEDS: MEROPENEM 500 MG in SYRINGE 1 EACH IV SCH (01:06)
[2018-02-07] MEDS: ALBUMIN 25% 25 GM in PREMIX 1 EACH IV SCH (04:39)
[2018-02-07] MEDS: LEVOTHYROXINE 125 MCG TABLET PO SCH (06:32)
[2018-02-07] MEDS: ALBUTEROL/IPRATROPIUM 3 ML NEB RESP TX SCH ×2 (07:52→11:20)
[2018-02-07] MEDS: LORazepam 2 MG/1 ML VIAL IV PRN ×2 (10:28→21:45)
[2018-02-07] MEDS: SKIN HEALING OINT (AQUAPHOR) 50 GM TUBE TOP SCH (11:21)
[2018-02-07] MEDS: TAMSULOSIN 0.4 MG CAPSULE PO SCH (11:21)
[2018-02-07] MEDS: FUROSEMIDE 40 MG/4 ML VIAL IV SCH (11:21)
[2018-02-07] MEDS: CILOSTAZOL 100 MG TABLET PO SCH (11:22)
[2018-02-07] MEDS: GENTAMICIN 0.1% CREAM 15 GM TUBE TOP SCH (11:22)
[2018-02-07] MEDS: PANTOPRAZOLE 40 MG TABLET PO SCH (11:22)
[2018-02-07] MEDS: HYDROCORTISONE 100 MG VIAL IV SCH (11:23)
[2018-02-07] MEDS ORDERED: oxyCODONE IR 5 MG TABLET PO PRN (16:21)
[2018-02-07] MEDS ORDERED: TEMAZEPAM 15 MG CAPSULE PO PRN (16:21)
[2018-02-08] MEDS: LEVOTHYROXINE 125 MCG TABLET PO SCH (06:13)
[2018-02-08] MEDS: SKIN HEALING OINT (AQUAPHOR) 50 GM TUBE TOP SCH (09:12)
[2018-02-08] MEDS: GENTAMICIN 0.1% CREAM 15 GM TUBE TOP SCH (11:08)
[2018-02-08] MEDS: LORazepam 2 MG/1 ML VIAL IV PRN (14:00)
[2018-02-08] MEDS: MORPHINE 4 MG/1 ML VIAL IV PRN (22:19)
[2018-02-09] MEDS: LEVOTHYROXINE 125 MCG TABLET PO SCH (06:25)
[2018-02-09] MEDS: SKIN HEALING OINT (AQUAPHOR) 50 GM TUBE TOP SCH (10:19)
[2018-02-09] MEDS: GENTAMICIN 0.1% CREAM 15 GM TUBE TOP SCH (10:20)
[2018-02-09] MEDS ORDERED: LEVOFLOXACIN INJ 500 MG in PREMIX 1 EACH IV ONE (13:30)
[2018-02-09] MEDS: MORPHINE 4 MG/1 ML VIAL IV PRN (13:36)
[2018-02-09] MEDS: LEVOFLOXACIN INJ 250 MG in PREMIX 1 EACH IV SCH (14:05)
[2018-02-09 14:10] LABS: Basophils % 0.6 % (0.0-0.8); Eosinophils # 0.4 10*3/uL (0.0-0.87); Eosinophils % 6.5 % (0.00-10.9); Hematocrit 29.7 VOL% (42.0-52.0); Hemoglobin 9.8 GM/DL (14.0-18.0); Immature Granulocytes % 0.9 %; Immature Granulocytes Absolute 0.06 #; Lymphocytes # 0.5 10*3/uL (1.4-4.0); Lymphocytes % 7.2 % (21.2-54.2); Mean Corpuscular Hemoglobin 32 PG (27-34); Mean Corpuscular Volume 97.4 FL (87-102); Mean Platelet Volume 9.9 FL (9.6-12.0); Monocytes # 0.7 10*3/uL (0.11-0.8); Monocytes % 11.1 % (1.7-12.7); Neutrophils # 4.7 10*3/uL (1.4-7.4); Neutrophils % 73.7 % (38.7-73.9); Platelet Count 189 T/CUMM (130-400); Red Blood Count 3.05 MC/CUMM (3.8-5.5); Red Cell Distribution Width 18.2 % (9.3-17.3); White Blood Count 6.4 T/CUMM (4-12)
[2018-02-09 14:18] LABS: Calcium 8.6 MG/DL (8.5-10.1); Osmolality,Calculated 296.7 MOS/KG (273-304); Potassium 3.5 MMOL/L (3.5-5.1)
[2018-02-09] MEDS: MEROPENEM 500 MG in SYRINGE 1 EACH IV SCH (15:56)
[2018-02-09] MEDS: CLINDAMYCIN INJ 600 MG in PREMIX 1 EACH IV SCH ×2 (15:58→21:41)
[2018-02-09] MEDS: ALBUTEROL/IPRATROPIUM 3 ML NEB RESP TX SCH ×2 (19:20→22:48)
[2018-02-10] MEDS: ALBUTEROL/IPRATROPIUM 3 ML NEB RESP TX SCH ×6 (03:03→23:50)
[2018-02-10] MEDS: MEROPENEM 500 MG in SYRINGE 1 EACH IV SCH ×2 (03:35→18:15)
[2018-02-10] MEDS: METHOCARBAMOL 750 MG TABLET PO PRN ×2 (04:27→22:04)
[2018-02-10] MEDS: CLINDAMYCIN INJ 600 MG in PREMIX 1 EACH IV SCH ×3 (06:15→22:06)
[2018-02-10] MEDS: LEVOTHYROXINE 125 MCG TABLET PO SCH (06:16)
[2018-02-10] MEDS: SKIN HEALING OINT (AQUAPHOR) 50 GM TUBE TOP SCH (09:33)
[2018-02-10] MEDS: GENTAMICIN 0.1% CREAM 15 GM TUBE TOP SCH (09:33)
[2018-02-10] MEDS: LEVOFLOXACIN INJ 250 MG in PREMIX 1 EACH IV SCH (12:12)
[2018-02-10] MEDS: LORazepam 2 MG/1 ML VIAL IV PRN ×2 (18:15→22:09)
[2018-02-11] MEDS: ALBUTEROL/IPRATROPIUM 3 ML NEB RESP TX SCH ×6 (02:55→22:29)
[2018-02-11 04:51] LABS: Basophils % 0.6 % (0.0-0.8); Eosinophils # 0.5 10*3/uL (0.0-0.87); Eosinophils % 9.8 % (0.00-10.9); Hematocrit 27.7 VOL% (42.0-52.0); Hemoglobin 9.4 GM/DL (14.0-18.0); Immature Granulocytes % 0.8 %; Immature Granulocytes Absolute 0.04 #; Lymphocytes # 0.5 10*3/uL (1.4-4.0); Lymphocytes % 9.6 % (21.2-54.2); Mean Corpuscular HGB Conc 33.9 GM/DL (32-36); Mean Corpuscular Hemoglobin 32 PG (27-34); Mean Corpuscular Volume 95.2 FL (87-102); Mean Platelet Volume 10.2 FL (9.6-12.0); Monocytes # 0.6 10*3/uL (0.11-0.8); Monocytes % 11.6 % (1.7-12.7); Neutrophils # 3.3 10*3/uL (1.4-7.4); Neutrophils % 67.6 % (38.7-73.9); Platelet Count 176 T/CUMM (130-400); Red Blood Count 2.91 MC/CUMM (3.8-5.5); Red Cell Distribution Width 17.4 % (9.3-17.3); White Blood Count 4.9 T/CUMM (4-12)
[2018-02-11] MEDS: CLINDAMYCIN INJ 600 MG in PREMIX 1 EACH IV SCH ×3 (05:15→21:03)
[2018-02-11 05:21] LABS: Calcium 8.6 MG/DL (8.5-10.1); Osmolality,Calculated 293.7 MOS/KG (273-304); Potassium 3.3 MMOL/L (3.5-5.1)
[2018-02-11] MEDS: LEVOTHYROXINE 125 MCG TABLET PO SCH (06:21)
[2018-02-11] MEDS: MEROPENEM 500 MG in SYRINGE 1 EACH IV SCH ×2 (09:06→21:04)
[2018-02-11] MEDS: LEVOFLOXACIN INJ 250 MG in PREMIX 1 EACH IV SCH (09:09)
[2018-02-11] MEDS: SKIN HEALING OINT (AQUAPHOR) 50 GM TUBE TOP SCH (09:11)
[2018-02-11] MEDS: GENTAMICIN 0.1% CREAM 15 GM TUBE TOP SCH (09:11)
[2018-02-11] MEDS: POTASSIUM CHLORIDE 20 MEQ TABLET PO PRN ×3 (09:56→15:37)
[2018-02-11] MEDS: LORazepam 2 MG/1 ML VIAL IV PRN (21:16)
[2018-02-12] MEDS: ALBUTEROL/IPRATROPIUM 3 ML NEB RESP TX SCH ×6 (02:43→22:42)
[2018-02-12] MEDS: CLINDAMYCIN INJ 600 MG in PREMIX 1 EACH IV SCH ×3 (05:55→21:06)
[2018-02-12] MEDS: LEVOTHYROXINE 125 MCG TABLET PO SCH (06:17)
[2018-02-12] MEDS: MEROPENEM 500 MG in SYRINGE 1 EACH IV SCH (08:51)
[2018-02-12] MEDS: LEVOFLOXACIN INJ 250 MG in PREMIX 1 EACH IV SCH (08:56)
[2018-02-12] MEDS ORDERED: MAGNESIUM SULF RIDER 4 GM in PREMIX 1 EACH IV PRN (09:28)
[2018-02-12] MEDS: SKIN HEALING OINT (AQUAPHOR) 50 GM TUBE TOP SCH (09:32)
[2018-02-12] MEDS: GENTAMICIN 0.1% CREAM 15 GM TUBE TOP SCH (09:32)
[2018-02-12] MEDS: MAGNESIUM SULF RIDER 2 GM in PREMIX 1 EACH IV PRN ×2 (10:20→11:55)
[2018-02-12] MEDS ORDERED: TUBERCULIN SKIN TEST 0.1 ML SYRINGE INTRADERM ONE (14:49)
[2018-02-12] MEDS: LORazepam 2 MG/1 ML VIAL IV PRN ×2 (14:58→21:04)
[2018-02-12] MEDS ORDERED: ENOXAPARIN 40 MG/0.4 ML SYRINGE SUBCUT SCH (21:00)
[2018-02-13] MEDS: ALBUTEROL/IPRATROPIUM 3 ML NEB RESP TX SCH ×3 (02:39→10:03)
[2018-02-13] MEDS: CLINDAMYCIN INJ 600 MG in PREMIX 1 EACH IV SCH (05:06)
[2018-02-13 05:15] LABS: Calcium 8.2 MG/DL (8.5-10.1)
[2018-02-13] MEDS: LEVOTHYROXINE 125 MCG TABLET PO SCH (06:17)
[2018-02-13 09:28] LABS: ABG Base Excess 5.6 MMOL/L (-2.5-2.5); ABG HCO3 29.5 MMOL/L (20-26); ABG PCO2 50.8 MM HG (35-48); ABG PH 7.399 (7.35-7.45); ABG TCO2 28.7 MMOL/L (23-27)
[2018-02-13] MEDS: GENTAMICIN 0.1% CREAM 15 GM TUBE TOP SCH (10:39)
[2018-02-13] MEDS: LEVOFLOXACIN INJ 250 MG in PREMIX 1 EACH IV SCH (10:39)
[2018-02-13] MEDS: SKIN HEALING OINT (AQUAPHOR) 50 GM TUBE TOP SCH (10:39)
[2018-02-13 14:00] VITALS: BP 109/49
== END 2018-02-13 14:15 | DRG 557 ==
LOC: EDUNIT# → N.ED 11:05 → SUATTDRO 14:26 → N.EDINP 14:26 → N.2E 16:56 → N.ICU 02-05 12:42 → N.2E 02-07 15:58
PROVIDERS: ADMIT Hospitalist